=== PATIENT | male | born 1985 | race African-American/Black ===

== ENCOUNTER 2018-09-27 14:39 | Emergency (ER) | payer SELFPAY ==
[~2018-09-27] VITALS: Ht 188 cm; Wt 117.9 kg
[2018-09-27 14:48] VITALS: BP 137/80
--- NOTE | 2018-09-27 14:48 | NUR ---
ED Nurse Note: CAME TO ED DUE TO LOWER BACK PAIN X4DAYS. TOOK IBUPROFEN BUT PAIN REMAINS. DENIES ANY RECENT INJURY AND HEAVY LIFTING.
[2018-09-27] MEDS ORDERED: POTASSIUM CHLO10 ME2 PO (14:52)
[2018-09-27] MEDS ORDERED: Phenazopyridine 200mg tab ORAL ONE (15:45)
--- NOTE | 2018-09-27 15:49 | Emergency Room Report ---
History of Present Illness General Chief Complaint: Back Pain-No Injury Source: Patient Present Illness HPI 33 YO male presents to the ED c/o 10/29 in severity LBP x 3 days that has been progressive without appreciable trauma or fall. Pt. reports hx of UTi in the past which presented similarly with the same symptoms. pt. denies fevers, chills or abdominal tenderness. he reports "tightness sensation " in the bladder / lower abdomen. He denies nausea, vomiting, constipation or diarrhea. He denies dysuria, hematuria, penile d/c, suspicion of STI/hx of STI, joint pain or swollen tender lymph nodes. Pt. denies midline spinal pain. He denies hx of cancer or recent spinal procedure. Denies numbness tingling or loss of sensation or gross motor movements of the extremities, incontinence of bowel or bladder. Denies CP, Palpitations, LOC, AMS, dizziness, Changes in Vision, weakness or a sudden severe headache. Allergies: Coded Allergies: No Known Allergies (Verified , 09/27/18) Patient History Past Medical History: see triage record Past Surgical History: none Pertinent Family History: none Reviewed Nursing Documentation: PMH: Agreed; PSxH: Agreed Nursing Documentation-PMH Past Medical History: No Stated History Review of Systems All Other Systems: negative except mentioned in HPI Physical Exam Vital Signs Date Time Temp Pulse Resp B/P (MAP) Pulse Ox O2 Delivery O2 Flow Rate FiO2 09/27/18 14:48 98.8 83 16 137/80 (99) 97 Room Air Sp02 EP Interpretation: reviewed, normal General Appearance: no apparent distress, alert, GCS 15, non-toxic Head: normocephalic, atraumatic Eyes: bilateral eye normal inspection, bilateral eye PERRL ENT: hearing grossly normal, normal voice Neck: full range of motion Respiratory: lungs clear, normal breath sounds, speaking full sentences Cardiovascular #1: regular rate, rhythm Gastrointestinal: normal bowel sounds, non tender, soft, non-distended, no guarding Rectal: deferred Genitourinary: normal inspection, no CVA tenderness Musculoskeletal: back normal, gait/station normal, normal range of motion, tender - TTP bilateral lumbar paraspinal muscles, no midline ttp, no step-off or obvious deformity. Pt. ambulatory. FROM - with pain exacerbated at almost full flexion of the L-Spine. Neurologic: alert, oriented x3, responsive, motor strength/tone normal, sensory intact, normal gait, speech normal, other - NVI to distal Lower extremities., grossly normal Psychiatric: judgement/insight normal Lymphatic: no adenopathy Medical Decision Making PA Attestation Dr. Dill Is my supervising Physician whom patient management has been discussed with. Diagnostic Impression: Primary Impression: Back pain Qualified Codes: M54.5 - Low back pain ER Course 33 YO male presents to the ED c/o 10/29 in severity LBP x 3 days that has been progressive without appreciable trauma or fall. Pt. reports hx of UTi in the past which presented similarly with the same symptoms. pt. denies fevers, chills or abdominal tenderness. he reports "tightness sensation " in the bladder / lower abdomen. He denies nausea, vomiting, constipation or diarrhea. He denies dysuria, hematuria, penile d/c, suspicion of STI/hx of STI, joint pain or swollen tender lymph nodes. Pt. denies midline spinal pain. He denies hx of cancer or recent spinal procedure. Denies numbness tingling or loss of sensation or gross motor movements of the extremities, incontinence of bowel or bladder. Denies CP, Palpitations, LOC, AMS, dizziness, Changes in Vision, weakness or a sudden severe headache. Denies sciatica. Ddx considered but are not limited to UTi , Pyelo, STI, Stone, Cystitis, Muscle strain/spasm, sciatica, epidural abscess, cancer,or cauda equina just to name a few. Vital signs: are WNL, pt. is afebrile H&PE are most consistent with UTI ORDERS: - UA labs are attached- No evidence of infection. ED INTERVENTIONS: -Pyridium PO -Robaxin 750mg PO -I do not identify an emergent condition at this time. With current presentation , pt. is stable for close outpatient follow up and conservative treatment. D/ w pt. to return promptly to ED with worsening or new symptoms.- Pt. verbalizes' understanding and agreement with proposed treatment plan. DISCHARGE: At this time pt. is stable for d/c to home. Will provide printed patient care instructions, and any necessary prescriptions. Care plan and follow up instructions have been discussed with the patient prior to discharge. Labs Test 09/27/18 15:43 Urine Color Yellow Urine Appearance Clear Urine pH 6 (4.5-8.0) Urine Specific [place] 1.020 (1.005-1.035) Urine Protein Negative (NEGATIVE) Urine Glucose (UA) Negative (NEGATIVE) Urine Ketones Negative (NEGATIVE) Urine Blood Negative (NEGATIVE) Urine Nitrite Negative (NEGATIVE) Urine Bilirubin Negative (NEGATIVE) Urine Urobilinogen Normal MG/DL (0.0-1.0) Urine Leukocyte Esterase Negative (NEGATIVE) Last Vital Signs Date Time Temp Pulse Resp B/P (MAP) Pulse Ox O2 Delivery O2 Flow Rate FiO2 09/27/18 14:48 98.8 85 16 137/80 97 Room Air Disposition: HOME, SELF-CARE Condition: Stable Scripts Ibuprofen* (MOTRIN*) 600 Mg Tablet 600 MG ORAL THREE TIMES A DAY, #30 TAB 0 Refills Prov: Ivette Payne 09/27/18 Methocarbamol* (ROBAXIN-750*) 750 Mg Tablet 750 MG PO QID for 7 Days, #28 TAB 0 Refills Prov: Ivette Payne 09/27/18 Patient Instructions: Back Pain, Adult Additional Instructions: Take medications as directed. Follow up with a Primary Care Provider in 3-5 days, even if your symptoms have resolved. --Please review list of primary care clinics, if you do not already have a primary care provider Return sooner to ED if new symptoms occur, or current symptoms become worse. - Please note that this Emergency Department Report was dictated using [employer] librarian technology software, occasionally this can lead to erroneous entry secondary to interpretation by the dictation equipment. Ivette Payne Sep 27, 2018 15:49
--- NOTE | 2018-09-27 15:49 | NUR ---
ED Nurse Note: fabienne moser
[2018-09-27 15:58] LABS: APPEARANCE,URINE CLEAR; BILIRUBIN, URINE NEGATIVE (NEGATIVE); GLUCOSE, URINE (UA) NEGATIVE (NEGATIVE); KETONES,URINE NEGATIVE (NEGATIVE); LEUKOCYTE ESTERASE ,URINE NEGATIVE (NEGATIVE); NITRITE,URINE NEGATIVE (NEGATIVE); PH,URINE 6 (4.5-8.0); PROTEIN,URINE NEGATIVE (NEGATIVE); UROBILINOGEN,URINE NORMAL MG/DL (0.0-1.0)
[2018-09-27 16:00] LABS: COLOR,URINE YELLOW
[2018-09-27] MEDS ORDERED: ROBAXIN-750750 MG PO (16:06)
[2018-09-27] MEDS ORDERED: IBUPROFEN600 MG ORAL (16:15)
[2018-09-27] MEDS ORDERED: Methocarbamol 750mg tab ORAL ONE (16:30)
[2018-09-27 16:40] VITALS: BP 135/80
--- NOTE | 2018-09-27 16:41 | NUR ---
ER DISCHARGE NOTE: Patient is cleared to be discharged per ERMD, pt is aox4, on room air, with stable vital signs. pt was given dc and prescription instructions, pt was able to verbalize understanding, pt id band removed without complications. pt is able to ambulate with steady gait. pt took all belongings.
== END 2018-09-27 16:40 | disposition home or self-care (01) ==
LOC: EMR 16:08
DX: M54.5 Low back pain (principal)
CPT/HCPCS: 81003; 99283

== ENCOUNTER 2018-10-02 00:36 | Emergency (ER) | payer SELFPAY ==
[~2018-10-02] VITALS: Ht 188 cm; Wt 112.9 kg
[~2018-10-02 00:36] MED LIST: IBUPROFEN600 MG ORAL; POTASSIUM CHLO10 ME2 PO; ROBAXIN-750750 MG PO
[2018-10-02] MEDS ORDERED: Ketorolac 60mg Inj IM ONE (01:15)
--- NOTE | 2018-10-02 01:22 | Emergency Room Report ---
History of Present Illness General Chief Complaint: Lower Back Pain or Injury Source: Patient Present Illness HPI Is a 33-year-old male presents after increased low back pain. Patient reports having gradual onset of pain over the past 1 week. Reports having acute injury after sitting up. He states that he is been having persistent pain. This is worse with movement. Patient denies any fever. He denies any dysuria or hematuria. He denies any fever. Allergies: Coded Allergies: No Known Allergies (Verified , 09/27/18) Patient History Past Medical History: see triage record Reviewed Nursing Documentation: PMH: Agreed; PSxH: Agreed Review of Systems All Other Systems: negative except mentioned in HPI Physical Exam Vital Signs Date Time Temp Pulse Resp B/P (MAP) Pulse Ox O2 Delivery O2 Flow Rate FiO2 10/02/18 00:42 98.4 88 18 131/81 (98) 97 Room Air Sp02 EP Interpretation: reviewed, normal General Appearance: normal inspection, well appearing, no apparent distress, alert, GCS 15 Head: atraumatic ENT: normal ENT inspection, hearing grossly normal, normal voice Neck: normal inspection, full range of motion, supple, no bony tend Respiratory: normal inspection, lungs clear, normal breath sounds, no respiratory distress, no retraction, no wheezing Cardiovascular #1: regular rate, rhythm, no edema Gastrointestinal: normal inspection, normal bowel sounds, non tender, soft, no guarding, no hernia Genitourinary: no CVA tenderness Musculoskeletal: normal inspection, back normal, normal range of motion Neurologic: normal inspection, alert, oriented x3, responsive, utilities and maintenance supervisor III-XII nml as tested, speech normal Psychiatric: normal inspection, judgement/insight normal, mood/affect normal Medical Decision Making Diagnostic Impression: Primary Impression: Lumbar disc disease ER Course .Patient presented for low back pain. Differential diagnosis included but was not limited to herniated disc, cauda equina syndrome, abdominal aortic aneurysm , perforated ulcer, spinal epidural abscess, spinal stenosis, lumbar fracture, metastatic lesion, pyelonephritis. CT imaging was ordered to patient's history of testicular discomfort and concern for possible stone.CT imaging of the abdomen pelvis read by radiology showed no evidence of acute stone or acute abdominal pathology. There is no evidence of acute spinal fracture. Patient was noted to be ambulatory without assistance. He appears to be stable for discharge. Patient was advised to recheck with his primary care physician. He was given a prescription for gabapentin. He is advised to return if worse. Labs Test 10/02/18 01:30 Urine Color Pale yellow Urine Appearance Clear Urine pH 5 (4.5-8.0) Urine Specific [employer] 1.020 (1.005-1.035) Urine Protein Negative (NEGATIVE) Urine Glucose (UA) Negative (NEGATIVE) Urine Ketones Negative (NEGATIVE) Urine Blood Negative (NEGATIVE) Urine Nitrite Negative (NEGATIVE) Urine Bilirubin Negative (NEGATIVE) Urine Urobilinogen Normal MG/DL (0.0-1.0) Urine Leukocyte Esterase Negative (NEGATIVE) Last Vital Signs Date Time Temp Pulse Resp B/P (MAP) Pulse Ox O2 Delivery O2 Flow Rate FiO2 10/02/18 00:42 98.4 88 18 131/81 (98) 97 Room Air Status: improved Disposition: HOME, SELF-CARE Condition: Stable Scripts Gabapentin* (GABAPENTIN*) 300 Mg Capsule 300 MG ORAL THREE TIMES A DAY, #14 CAP 0 Refills Prov: Braden Meyer MD 10/02/18 Referrals: NOT CHOSEN IPA/,REFERRING (PCP) Braden Meyer MD Oct 02, 2018 01:22
[2018-10-02 01:43] LABS: APPEARANCE,URINE CLEAR; BILIRUBIN, URINE NEGATIVE (NEGATIVE); COLOR,URINE PALE YELLOW; GLUCOSE, URINE (UA) NEGATIVE (NEGATIVE); KETONES,URINE NEGATIVE (NEGATIVE); LEUKOCYTE ESTERASE ,URINE NEGATIVE (NEGATIVE); NITRITE,URINE NEGATIVE (NEGATIVE); PH,URINE 5 (4.5-8.0); PROTEIN,URINE NEGATIVE (NEGATIVE); UROBILINOGEN,URINE NORMAL MG/DL (0.0-1.0)
[2018-10-02] MEDS ORDERED: GABAPENTIN300 MG ORAL (02:16)
--- NOTE | 2018-10-02 02:27 | Diagnostic Imaging Report ---
Indication: Abdominal pain Technique: Continuous helical transaxial imaging of the abdomen and pelvis was obtained from the lung bases to the pubic symphysis. No intravenous contrast was administered. Coronal 2-D reformats were also obtained. Automatic Exposure Control was utilized. Total Dose length Product (DLP): 1018.[address] Dose Index Volume (CTDIvol): 17.49 mGy Comparison: none Findings: The lung bases are clear. There is no free fluid. Appendix is normal. Bowel gas pattern is nonobstructive. There is no nephrolithiasis or hydronephrosis identified. Gallbladder is contracted and not evaluated well. No obvious abnormality seen in this regard. IMPRESSION: Negative noncontrast CT. No acute findings. [facility] has communicated the preliminary results to the Emergency Department. Their findings are largely concordant with this report. The CT scanner at [facility] is accredited by the [employer] and the scans are performed using dose optimization techniques as appropriate to a performed exam including Automatic Exposure control.
[2018-10-02 02:35] VITALS: BP 124/72
[2018-10-02 02:45] VITALS: BP 124/72
== END 2018-10-02 02:49 | disposition home or self-care (01) ==
LOC: EMR 01:08
DX: M51.36 Other intervertebral disc degeneration, lumbar region (principal); M54.5 Low back pain
CPT/HCPCS: 74176; 81003; 96372; 99284

== ENCOUNTER 2018-10-18 16:44 | Emergency (ER) | payer SELFPAY ==
[~2018-10-18] VITALS: Ht 188 cm; Wt 117.9 kg
[~2018-10-18 16:44] MED LIST changes: +GABAPENTIN300 MG ORAL
[2018-10-18 16:48] VITALS: BP 116/68
[2018-10-18] MEDS ORDERED: NKM (16:49)
[2018-10-18 16:52] VITALS: BP 116/68
--- NOTE | 2018-10-18 17:06 | Emergency Room Report ---
History of Present Illness General Chief Complaint: Eye Problems Source: Patient Present Illness HPI 33-year-old male with no significant past medical history here complaining of pruritus and minimal pain in the right eye x1 day. Patient denies any fall or injury. Denies blurry vision, complains of minimal amount of yellow discharge from the eye. Denies being contact lenses. Denies photophobia, pain inside his eye. Denies URI symptoms, chest pain, shortness of breath, palpitation, and other associated symptoms. Mildly erythematous stye is noted in the right lower eyelid without conjunctivitis bacterially. Patient also complains of pruritus in the affected area and has not taken medication for symptom relief. Allergies: Coded Allergies: No Known Allergies (Verified , 09/27/18) Patient History Past Medical History: see triage record Past Surgical History: unable to obtain Pertinent Family History: none Immunizations: UTD Reviewed Nursing Documentation: PMH: Agreed; PSxH: Agreed Nursing Documentation-PMH Past Medical History: No Stated History Review of Systems All Other Systems: negative except mentioned in HPI Physical Exam Vital Signs Date Time Temp Pulse Resp B/P (MAP) Pulse Ox O2 Delivery O2 Flow Rate FiO2 10/18/18 16:48 98.4 71 18 116/68 (84) 97 Room Air Sp02 EP Interpretation: reviewed, normal General Appearance: no apparent distress, alert, GCS 15, non-toxic Head: normocephalic, atraumatic Eyes: right eye other - Sty in right lower eyelid; bilateral eye normal inspection, bilateral eye PERRL ENT: hearing grossly normal, normal pharynx, no angioedema, normal voice Neck: full range of motion, supple/symm/no masses Respiratory: chest non-tender, lungs clear, normal breath sounds, no rhonchi, speaking full sentences Cardiovascular #1: regular rate, rhythm, no edema, no murmur Gastrointestinal: normal bowel sounds, non tender, soft, non-distended, no guarding, no rebound Genitourinary: normal inspection, no CVA tenderness Musculoskeletal: back normal, gait/station normal, normal range of motion, non- tender Neurologic: alert, oriented x3, responsive, motor strength/tone normal, sensory intact, speech normal Psychiatric: judgement/insight normal, memory normal, mood/affect normal, no suicidal/homicidal ideation Skin: no rash Lymphatic: no adenopathy Medical Decision Making PA Attestation All diagnoses and treatment plans were reviewed and discussed with my supervising physician Dr. Stauffer Diagnostic Impression: Primary Impression: Hordeolum externum of right eye Additional Impression: Allergic conjunctivitis ER Course 33-year-old male with no significant past medical history here complaining of pruritus and minimal pain in the right eye x1 day. Patient denies any fall or injury. Denies blurry vision, complains of minimal amount of yellow discharge from the eye. Denies being contact lenses. Denies photophobia, pain inside his eye. Denies URI symptoms, chest pain, shortness of breath, palpitation, and other associated symptoms. Mildly erythematous stye is noted in the right lower eyelid without conjunctivitis bacterially. Patient also complains of pruritus in the affected area and has not taken medication for symptom relief. Ddx considered but are not limited to: bacterial conjunctivitis, allergic conjunctivitis, viral conjunctivitis, periorbital cellulitis, global trauma Vital signs: are WNL, pt. is afebrile H&PE are most consistent with: Hordeolum in the right lower eyelid, allergic conjunctivitis ORDERS: Ofloxacin ophthalmic, Zaditor ophthalmic ED INTERVENTIONS: None required at this time. DISCHARGE: At this time pt. is stable for d/c to home. Will provide printed patient care instructions, and any necessary prescriptions. Care plan and follow up instructions have been discussed with the patient prior to discharge. I advised the patient to follow-up with her primary care provider for her emergency room Last Vital Signs Date Time Temp Pulse Resp B/P (MAP) Pulse Ox O2 Delivery O2 Flow Rate FiO2 10/18/18 16:48 98.4 71 18 116/68 (84) 97 Room Air Disposition: HOME, SELF-CARE Condition: Stable Scripts Ketotifen Fumarate (ZADITOR) 5 Ml Drops 1 DROP LEFT EYE BID for 5 Days, #5 ML 0 Refills Prov: Ashley Castañeda 10/18/18 Ofloxacin (Ofloxacin) 5 Ml Drops 2 DROP OP Q4HR for 5 Days, #5 ML Prov: Ashley Castañeda 10/18/18 Patient Instructions: Allergic Conjunctivitis, [id number], Stye Additional Instructions: Take medication as directed follow-up with your primary care provider worsening symptoms return to the emergency room Ashley Castañeda Oct 18, 2018 17:06
[2018-10-18] MEDS ORDERED: OFLOXACIN10 ML OP (17:07)
[2018-10-18] MEDS ORDERED: ZADITOR5 ML LEFT EYE (17:07)
--- NOTE | 2018-10-18 17:20 | NUR ---
ED Nurse Note: PATIENT PRESENTS TO ER DUE TO RIGHT LOWER EYELID SWELLING/REDNESS X 2 DAYS; REPORTS NO FEVER, CHILLS. REPORTS NO BLURRY VISION. PATIENT USING CELL PHONE WITHOUT PROBLEM.
--- NOTE | 2018-10-18 17:27 | NUR ---
ED Nurse Note: PATIENT IS BEING DISCHARGED FROM MEDICAL CARE. D/C INSTRUCTION/PRESCRIPTIONS GIVEN TO PATIENT. PATIENT VEBALIZED UNDERSTANDING OF IT. ALL QUESTIONS WERE ANSWERED. PATIENT AMBULATED OUT WITH STEADY GAIT.
== END 2018-10-18 17:30 | disposition home or self-care (01) ==
LOC: EMR 17:02
DX: H00.012 Hordeolum externum right lower eyelid (principal); H10.11 Acute atopic conjunctivitis, right eye
CPT/HCPCS: 99282

== ENCOUNTER 2019-02-19 18:00 | Emergency (ER) | payer SELFPAY ==
[~2019-02-19] VITALS: Ht 185.4 cm; Wt 72.6 kg
[~2019-02-19 18:00] MED LIST changes: +NKM; +OFLOXACIN10 ML OP; +ZADITOR5 ML LEFT EYE
--- NOTE | 2019-02-19 18:15 | NUR ---
ED Nurse Note: Patient walked into ED from home c/o n/v/d and headache since today morning. patient is alert awake x4 ambulatory breathing unlabored and even, speaking in full sentences.
[2019-02-19] MEDS: Ketorolac 30mg Inj IV ONE ×3 (18:30→19:21)
[2019-02-19] MEDS ORDERED: Omnipaque-300 100ml vial INJ PRN (18:30)
[2019-02-19 19:03] LABS: BASOPHILS % (AUTO) 1.2 % (0.0-2.0); EOSINOPHILS % (AUTO) 0.4 % (0.0-3.0); HEMATOCRIT 46.3 % (42.0-52.0); HEMOGLOBIN 16.1 G/DL (14.2-18.0); LYMPHOCYTES % (AUTO) 8.2 % (20.0-45.0); MEAN CORPUSCULAR VOLUME 89 FL (80-99); MONOCYTES % (AUTO) 6.7 % (1.0-10.0); NEUTROPHILS % (AUTO) 83.4 % (45.0-75.0); PLATELET COUNT 220 K/UL (150-450); RED BLOOD COUNT 5.19 M/UL (4.70-6.10); RED CELL DISTRIBUTION WIDTH 9.7 % (11.6-14.8); WHITE BLOOD COUNT 10.5 K/UL (4.8-10.8)
--- NOTE | 2019-02-19 19:04 | NUR ---
ED Nurse Note: notified CHARIS Mcneill that patient refused toradol and asked for morphine instead.
[2019-02-19 19:07] LABS: INR 0.9 (0.9-1.1)
[2019-02-19 19:09] LABS: ANION GAP 14 mmol/L (5-15); BLOOD UREA NITROGEN 10 mg/dL (7-18); CALCIUM 9.7 MG/DL (8.5-10.1); CARBON DIOXIDE 23 MMOL/L (21-32); CHLORIDE 106 MMOL/L (98-107); POTASSIUM 3.2 MMOL/L (3.5-5.1); SODIUM 143 MMOL/L (136-145)
[2019-02-19 19:13] LABS: ALANINE AMINOTRANSFERASE 37 U/L (12-78); ALBUMIN 3.7 G/DL (3.4-5.0); ALBUMIN/GLOBULIN RATIO 0.7 (1.0-2.7); ALKALINE PHOSPHATASE 79 U/L (46-116); ASPARTATE AMINO TRANSFERASE 26 U/L (15-37)
[2019-02-19] MEDS ORDERED: Ketorolac 30mg Inj ONE (19:16)
--- NOTE | 2019-02-19 19:22 | NUR ---
ED Nurse Note: CHARIS Ramirez is ok for the patient not to be on the threat monitoring analyst while patient receives KCL IVF. will endorse to PM RN.
--- NOTE | 2019-02-19 19:29 | NUR ---
HAND-OFF: Report given to Rosalinda CHILD.
[2019-02-19 19:58] VITALS: BP 122/80
[2019-02-19] MEDS ORDERED: Ketorolac 30mg Inj IV ONE (20:15)
--- NOTE | 2019-02-19 20:19 | Diagnostic Imaging Report ---
Clinical Indication: Abdominal pain, history of hypokalemia renal disease Technique: No oral contrast utilized, per emergency room physician request IV administration nonionic contrast. Venous phase spiral acquisition obtained through the abdomen and pelvis. Multiplanar reconstructions were generated. Total dose length product 1567 mGycm. CTDIvol(s) 24 mGy. Dose reduction achieved using automated exposure control Comparison: 10/02/2018 noncontrast study Findings: The appendix is normal. A mild amount of fluid is seen in the rectum as well as within the small bowel. No neo small bowel distention. Distal esophagus, stomach, duodenum are unremarkable. No free or loculated intraperitoneal gas or fluid. The liver, gallbladder, bile ducts, pancreas, spleen, adrenals, kidneys are all unremarkable. No retroperitoneal or mesenteric mass or adenopathy. No pelvic mass or adenopathy. Included lung bases are clear. The bones are unremarkable. Impression: Fluid-filled small bowel and colon, may indicate diarrheal illness. No acute process otherwise This agrees with the preliminary interpretation provided overnight by [facility]. The CT scanner at [facility] is accredited by the [employer] and the scans are performed using protocols designed to limit radiation exposure to as low as reasonably achievable to attain images of sufficient resolution adequate for diagnostic evaluation.
--- NOTE | 2019-02-19 20:25 | Emergency Room Report ---
History of Present Illness General Chief Complaint: Abdominal Pain Source: Patient Present Illness HPI 34-year-old male who reports he has history of hypokalemia and takes supplements has not taken any supplement in a few days here presenting with multiple bouts of diarrhea and vomiting x2 days. Reports that started after eating a hotdog. Denies any alcohol consumption, drug use. Does admit to smoking marijuana. Denies any tobacco smoke. Denies fever and chills, chest pain, shortness of breath or palpitation at this time. Complains of generalized body ache and back pain and keeps asking for something stronger the back pain. Patient reports that his dentist gave him Percocet and he has been taking a few Percocets and has not been helping his pain. Keeps asking for morphine. Reports that he usually goes to the hospital when he has pain like this and asked for morphine. Denies urinary symptoms, recent travel, and other associated symptoms. Patient appears to be stable with stable vital signs. Denies any bloody emesis or bloody diarrhea. Complains of abdominal discomfort however denies any abdominal pain Allergies: Coded Allergies: No Known Allergies (Verified , 09/27/18) Patient History Past Medical History: see triage record Past Surgical History: none Pertinent Family History: none Social History: Reports: drug use - marijuana Immunizations: UTD Reviewed Nursing Documentation: PMH: Agreed; PSxH: Agreed Review of Systems All Other Systems: negative except mentioned in HPI Physical Exam Vital Signs Date Time Temp Pulse Resp B/P (MAP) Pulse Ox O2 Delivery O2 Flow Rate FiO2 02/19/19 18:07 98.4 83 20 126/76 (93) 100 Room Air Sp02 EP Interpretation: reviewed, normal General Appearance: alert, GCS 15, non-toxic, mild distress Head: normocephalic, atraumatic Eyes: bilateral eye normal inspection, bilateral eye PERRL ENT: hearing grossly normal, normal pharynx, no angioedema, normal voice Neck: full range of motion, supple, thyroid normal, no meningismus, no bony tend, supple/symm/no masses Respiratory: chest non-tender, lungs clear, normal breath sounds, no rhonchi, no respiratory distress, no wheezing, speaking full sentences Cardiovascular #1: regular rate, rhythm, no edema, no murmur, normal capillary refill Gastrointestinal: non tender, soft, no mass, no organomegaly, no peritonitis, no bruit, non-distended, no guarding Rectal: deferred Genitourinary: no CVA tenderness Musculoskeletal: back normal Neurologic: alert, motor strength/tone normal, oriented x3, sensory intact, responsive, speech normal Psychiatric: judgement/insight normal, memory normal, mood/affect normal, no suicidal/homicidal ideation Skin: no rash Lymphatic: no adenopathy Medical Decision Making PA Attestation Diagnosis and treatment plans were reviewed and discussed with my supervising physician Dr. Dill Diagnostic Impression: Primary Impression: Enteritis Additional Impressions: Dehydration Hypokalemia ER Course 34-year-old male who reports he has history of hypokalemia and takes supplements has not taken any supplement in a few days here presenting with multiple bouts of diarrhea and vomiting x2 days. Reports that started after eating a hotdog. Denies any alcohol consumption, drug use. Does admit to smoking marijuana. Denies any tobacco smoke. Denies fever and chills, chest pain, shortness of breath or palpitation at this time. Complains of generalized body ache and back pain and keeps asking for something stronger the back pain. Patient reports that his dentist gave him Percocet and he has been taking a few Percocets and has not been helping his pain. Keeps asking for morphine. Reports that he usually goes to the hospital when he has pain like this and asked for morphine. Denies urinary symptoms, recent travel, and other associated symptoms. Patient appears to be stable with stable vital signs. Denies any bloody emesis or bloody diarrhea. Complains of abdominal discomfort however denies any abdominal pain Ddx considered but are not limited to: appendicitis, cholecystis, gastritis, gastroenteritis, UTI, pyelonephritis, SBO, diverticulitis, influenza with GI manifestation, OR, Vital signs: are WNL, pt. is afebrile H&PE are most consistent with: Enteritis, dehydration, mild hypokalemia ORDERS: abdominal CT, abdominal pain set, EKG, dicyclomine, Zofran, Tylenol, potassium chloride ED INTERVENTIONS: Potassium chloride, NS bolus, Zofran, Pepcid, Toradol DISCHARGE: At this time pt. is stable for d/c to home. Will provide printed patient care instructions, and any necessary prescriptions. Care plan and follow up instructions have been discussed with the patient prior to discharge. 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 Explained to him that this is due to viral gastroenteritis and even if bacterial needs to follow-up with primary care provider for stool culture and ova and parasite. If worsening symptoms return to the emergency room. Increase oral hydration specially electrolyte water, keep a brat diet. EKG Diagnostic Results Rate: normal Rhythm: NSR ST Segments: no acute changes Other Impression No acute ST changes Chest X-Ray Diagnostic Results Chest X-Ray Diagnostic Results : Chest X-Ray Ordered: Yes # of Views/Limited/Complete: 1 View Indication: Other EP Interpretation: Yes PA Xray: Interpretation reviewed, by supervising MD, and agrees with findings. Interpretation: no consolidation, no pneumothorax Impression: No acute disease Electronically Signed by: Ashley Kirkpatrick PA-C CT/MRI/US Diagnostic Results CT/MRI/US Diagnostic Results : Imaging Test Ordered: CT abdomen pelvis with contrast Impression CT ABDOMEN & PELVIS With Contrast: Lower thorax is unremarkable. Decreased attenuation liver which may be phase of IV contrast versus hepatic steatosis. Gallbladder, spleen, pancreas and adrenal glands are unremarkable. Kidneys, ureters and urinary bladder unremarkable. Appendix measures upper limits normal 6 mm. No adjacent stranding to suggest acute appendicitis. Correlate clinically. There is fluid noted throughout the small bowel and colon with mild wall thickening of the proximal small bowel loops. Findings may represent nonspecific diarrheal illness/enteritis. No free fluid. No free air. No acute osseous abnormality. Vascular calcifications. Last Vital Signs Date Time Temp Pulse Resp B/P (MAP) Pulse Ox O2 Delivery O2 Flow Rate FiO2 02/19/19 19:59 98.4 02/19/19 19:58 80 18 122/80 100 Room Air Disposition: HOME, SELF-CARE Condition: Stable Scripts Potassium Chloride* (K-DUR*) 20 Meq Tab.er.prt 20 MEQ ORAL DAILY, #7 TAB 0 Refills Prov: Ashley Castañeda 02/19/19 Acetaminophen* (TYLENOL EXTRA STRENGTH*) 500 Mg Tablet 500 MG ORAL Q6H PRN for Mild Pain/Temp > 100.5, #30 TAB 0 Refills Prov: Ashley Castañeda 02/19/19 Dicyclomine Hcl* (DICYCLOMINE HCL*) 10 Mg Capsule 10 MG ORAL TID, #10 CAP Prov: Ashley Castañeda 02/19/19 Ondansetron (Zofran) 4 Mg Tablet 4 MG ORAL Q6H PRN for Nausea & Vomiting, #14 TAB Prov: Ashley Castañeda 02/19/19 Referrals: NOT CHOSEN IPA/MD,REFERRING (PCP) Patient Instructions: Abdominal Pain, Adult, Dehydration, Adult Additional Instructions: Take medication as directed, keep a brat diet consisting of banana, rice, applesauce, piece of toast, increase oral hydration specially electrolyte water. Avoid eating spicy, acidic food, avoid eating dairy products for few days. Follow-up with your primary care provider for referral to large sheetfed press operator. Your back pain is secondary to multiple bouts of vomiting and diarrhea. If worsening symptoms return to the emergency room. Ashley Castañeda Feb 19, 2019 20:25
[2019-02-19] MEDS ORDERED: POTASSIUM CHLO20 ME1 ORAL (20:28)
[2019-02-19] MEDS ORDERED: TYLENOL EXTRA500 MG ORAL (20:28)
[2019-02-19] MEDS ORDERED: DICYCLOMINE HCL10 MG ORAL (20:28)
[2019-02-19] MEDS ORDERED: ZOFRAN4 M1 ORAL (20:28)
[2019-02-19 20:39] VITALS: BP 122/80
--- NOTE | 2019-02-19 20:39 | NUR ---
ED Nurse Note: pt cleared to be d/c per ER provider, pt discharge and aftercare instruction w/ prescription provided to, education done via discussion and handout, pt advised to follow up with pcp or return to ed if changes in condition, pt verbalized understanding and agrees with plan, left w/ all belongings accompanied by girlfriend, iv d/c and id band removed.
--- NOTE | 2019-02-20 10:48 | Diagnostic Imaging Report ---
Indication: Shortness of breath Technique: One view of the chest Comparison: none Findings: Lungs and pleural spaces are clear. Heart size is normal. Impression: No acute process
== END 2019-02-19 20:40 | disposition home or self-care (01) ==
LOC: EMR 19:31
DX: K52.9 Noninfective gastroenteritis and colitis, unspecified (principal); E86.0 Dehydration; E87.6 Hypokalemia; F12.90 Cannabis use, unspecified, uncomplicated
CPT/HCPCS: 36415; 71045; 74177; 80053; 83690; 84484; 85025; 85610; 85730; 86850; 86900; 86901; 93005; 96361; 96365; 96375; 96376; 99284; G0480; J1885; J2405; J3480; J7030; Q9967; S0028; J8499

== ENCOUNTER 2019-07-10 12:28 | Emergency (ER) | payer SELFPAY ==
[~2019-07-10] VITALS: Ht 182.9 cm; Wt 104.3 kg
[2019-07-10 12:28] VITALS: BP 132/86
[~2019-07-10 12:28] MED LIST changes: +DICYCLOMINE HCL10 MG ORAL; +POTASSIUM CHLO20 ME1 ORAL; +TYLENOL EXTRA500 MG ORAL; +ZOFRAN4 M1 ORAL
[2019-07-10] MEDS ORDERED: ZITHROMAX250 MG ORAL (12:39)
[2019-07-10] MEDS ORDERED: IBUPROFEN600 M1 ORAL (12:39)
[2019-07-10 12:44] VITALS: BP 132/86
[2019-07-10] MEDS ORDERED: Lidocaine 2% Visc 15ml soln ORAL ONE (12:45)
--- NOTE | 2019-07-10 12:47 | Emergency Room Report ---
History of Present Illness General Chief Complaint: Fever Source: Patient Present Illness HPI Patient is a 34-year-old male denies any significant past medical history who presents to the ER complaining of throat pain, tonsil swelling and swollen lymph nodes for 2 days. Patient states he had a fever and took NyQuil before coming in. Patient denies any drooling, changes to his voice, rash or neck stiffness. Patient denies any difficulty swallowing or drooling. He denies any chest pain, shortness of breath or cough. 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 Patient History Past Medical History: none Past Surgical History: none Social History: Reports: drug use - marijuana; Denies: smoking, alcohol use Review of Systems All Other Systems: negative except mentioned in HPI Physical Exam Vital Signs Date Time Temp Pulse Resp B/P (MAP) Pulse Ox O2 Delivery O2 Flow Rate FiO2 07/10/19 12:22 99.0 97 20 132/86 (101) 100 Room Air Sp02 EP Interpretation: reviewed, normal General Appearance: no apparent distress, alert, GCS 15, non-toxic Head: normocephalic, atraumatic Eyes: bilateral eye normal inspection, bilateral eye PERRL ENT: no angioedema, tonsillar swelling, other - No peritonsillar abscess or cellulitis Neck: full range of motion, no meningismus, other - Tender cervical lymphadenopathy Respiratory: chest non-tender, lungs clear, normal breath sounds, speaking full sentences Cardiovascular #1: regular rate, rhythm, no edema Gastrointestinal: normal bowel sounds, non tender, soft, non-distended, no guarding, no rebound Rectal: deferred Musculoskeletal: back normal, normal range of motion, gait/station normal, non- tender Neurologic: alert, motor strength/tone normal, oriented x3, sensory intact, responsive, speech normal Psychiatric: no suicidal/homicidal ideation Skin: no rash Medical Decision Making Diagnostic Impression: Primary Impression: Pharyngitis ER Course Patient has no peritonsillar abscess or cellulitis. Presumed strep pharyngitis. Patient being discharged home with a Z-Harvey and Motrin. After discussing risks and benefits of further diagnostics, treatment plans, as well as indications for and risks of admission, the patient is agreeable to being discharged home. I have explained that their evaluation and treatment in the emergency department today is an important step towards them achieving better health but that their evaluation today is not intended to replace further evaluation and treatment by a physician in their local clinic. I have explained that while the current findings suggest no immediate life threatening emergency they will require further evaluation and treatment by a physician of their choice in their area. They understand that it will be necessary for them to review the final reports of their ED visit with their clinic physician. We have reviewed indications for return to the Emergency Department. I have explained that additional time may need to pass and/or additional testing as an outpatient may be necessary before a definitive diagnosis can be made. They tell me they are willing to follow up as instructed within the timeframe I recommend. They appear to understand what we discussed. Additionally they understand that if they are unable to be seen by an outpatient physician they are welcome, and in fact should, return to the Emergency Department for a repeat evaluation. The patient is stable at time of discharge. Last Vital Signs Date Time Temp Pulse Resp B/P (MAP) Pulse Ox O2 Delivery O2 Flow Rate FiO2 07/10/19 12:28 97 20 Room Air 07/10/19 12:28 98.9 132/86 100 Disposition: HOME, SELF-CARE Condition: Stable Scripts Ibuprofen* (MOTRIN*) 600 Mg Tablet 600 MG ORAL FOUR TIMES A DAY, #30 TAB 0 Refills Prov: Valerie Phan M.D. 07/10/19 Azithromycin* (ZITHROMAX*) 250 Mg Tablet 250 MG ORAL DAILY, #6 TAB 0 Refills Take two tables once daily for 1 day, then one tablet once daily for 4 days. Prov: Valerie Phan M.D. 07/10/19 Referrals: [facility] Patient Instructions: Pharyngitis, [id number] Additional Instructions: The patient was provided with discharge instructions, notified to follow-up with a primary care doctor and or specialist in the next 24-48 hours, and to return to the ED if they have worsening of their symptoms. Please note that this report is being documented using TrialScope technology. This can lead to erroneous entry secondary to incorrect interpretation by the dictating instrument. Valerie Phan M.D. July 10, 2019 12:47
== END 2019-07-10 13:00 | disposition home or self-care (01) ==
LOC: EMR 12:51
DX: J02.9 Acute pharyngitis, unspecified (principal); F12.90 Cannabis use, unspecified, uncomplicated
CPT/HCPCS: 99282

== ENCOUNTER 2019-07-12 01:10 | Inpatient (IN) | payer MEDICAID ==
[2019-07-12] VITALS (10 sets, daily range): BP systolic 133–161; BP diastolic 78–120
[~2019-07-12] VITALS: Ht 185.4 cm; Wt 109.8 kg
[~2019-07-12 01:10] MED LIST changes: +IBUPROFEN600 M1 ORAL; +ZITHROMAX250 MG ORAL
[2019-07-12] MEDS ORDERED: HYDROmorphone 1mg/ml Carpuject IVP ONE ×2 (01:45→02:45)
[2019-07-12] MEDS ORDERED: Omnipaque 350 100ml vial INJ PRN (01:45)
[2019-07-12] MEDS ORDERED: Dexamethasone 4mg/ml vial IVP ONE (01:45)
[2019-07-12] MEDS ORDERED: cefTRIAXone 1 GM in NS 55 ML IVPB ONE (01:45)
--- NOTE | 2019-07-12 01:46 | Emergency Room Report ---
History of Present Illness General Chief Complaint: Fever Source: Patient Present Illness HPI This is a 34-year-old male with no past medical history. Presents with chief plaint of sore throat and fever. Onset for last 3 days now. He was here yesterday for the same. He received azithromycin and Motrin. Said is not getting better but actually getting worse. Swelling is more to the left side of his neck. Pain is 10 out of 10. He has increasing fever and chills. No nausea or vomiting. Worse with swallowing. He still holding his secretion. Pain is diffuse in nature but mostly the little the throat and left neck area. Never had this problem before. No sick contact. 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 Patient History Past Medical History: see triage record, old chart reviewed Past Surgical History: none Pertinent Family History: none Social History: Denies: smoking Immunizations: other Reviewed Nursing Documentation: PMH: Agreed; PSxH: Agreed Nursing Documentation-PMH Past Medical History: No History, Except For Review of Systems Constitutional: Reports: chills, fever, weakness Eye: Denies: eye pain, blurred vision ENT: Reports: throat pain, throat swelling; Denies: ear pain, nose congestion Respiratory: Denies: cough, shortness of breath Cardiovascular: Denies: chest pain, palpitations Gastrointestinal: Denies: abdominal pain, diarrhea, nausea, vomiting Musculoskeletal: Denies: back pain, joint pain Skin: Denies: rash Neurological: Denies: headache, numbness Endocrine: Denies: increased thirst, increased urine Hematologic/Lymphatic: Denies: easy bruising All Other Systems: negative except mentioned in HPI Physical Exam Vital Signs Date Time Temp Pulse Resp B/P (MAP) Pulse Ox O2 Delivery O2 Flow Rate FiO2 07/12/19 01:14 102.4 105 18 150/98 (115) 98 Room Air Vitals with fever Sp02 EP Interpretation: reviewed, normal General Appearance: no apparent distress, alert, other - Ill-appearing Head: normocephalic, atraumatic Eyes: bilateral eye PERRL, bilateral eye EOMI ENT: hearing grossly normal, tonsillar swelling, pharyngeal erythema Neck: full range of motion, supple, no meningismus, tender - Left side neck is swollen and tender to palpation Respiratory: chest non-tender, lungs clear, normal breath sounds Cardiovascular #1: regular rate, rhythm, no murmur Gastrointestinal: normal bowel sounds, non tender, no mass, no organomegaly, no bruit, non-distended Musculoskeletal: back normal, normal range of motion, gait/station normal Psychiatric: mood/affect normal Medical Decision Making Diagnostic Impression: Primary Impression: Sepsis Qualified Codes: A41.9 - Sepsis, unspecified organism Additional Impressions: Pharyngitis, acute Qualified Codes: J02.9 - Acute pharyngitis, unspecified Lymphadenopathy of left cervical region ER Course Patient presents with fever and sore throat with significant neck swelling. There is no evidence of any abscess on the CT scan. Labs unremarkable with elevated monocyte count. This may be a viral etiology. Antibiotics given here. Because he failed outpatient therapy and is still not feeling better, will admit for IV fluids and pain control. I will admit to service of Dr. Larios. CT/MRI/US Diagnostic Results CT/MRI/US Diagnostic Results : Imaging Test Ordered: CT neck Impression Read by radiologist. No abscess seen. He has lymph no inflammation up to 2.8 cm. Last Vital Signs Date Time Temp Pulse Resp B/P (MAP) Pulse Ox O2 Delivery O2 Flow Rate FiO2 07/12/19 01:14 102.4 105 18 150/98 (115) 98 Room Air Status: improved Disposition: ADMITTED INPATIENT Condition: Serious Referrals: NOT CHOSEN IPA/,REFERRING (PCP) Avery Zavala MD July 12, 2019 01:46
[2019-07-12 02:15] LABS: BASOPHILS % (AUTO) 1.7 % (0.0-2.0); HEMOGLOBIN 15.1 G/DL (14.2-18.0); LYMPHOCYTES % (AUTO) 6.4 % (20.0-45.0); MEAN CORPUSCULAR VOLUME 84 FL (80-99); MONOCYTES % (AUTO) 13.8 % (1.0-10.0); PLATELET COUNT 170 K/UL (150-450); RED CELL DISTRIBUTION WIDTH 10.3 % (11.6-14.8); WHITE BLOOD COUNT 9.5 K/UL (4.8-10.8)
[2019-07-12 02:37] LABS: ALANINE AMINOTRANSFERASE 41 U/L (12-78); ALBUMIN 3.3 G/DL (3.4-5.0); ALBUMIN/GLOBULIN RATIO 0.7 (1.0-2.7); ALKALINE PHOSPHATASE 77 U/L (46-116); ASPARTATE AMINO TRANSFERASE 38 U/L (15-37); BILIRUBIN,TOTAL 0.7 MG/DL (0.2-1.0); BLOOD UREA NITROGEN 4 mg/dL (7-18); CALCIUM 9.2 MG/DL (8.5-10.1); CARBON DIOXIDE 27 MMOL/L (21-32); CREATININE 1.1 MG/DL (0.55-1.30)
[2019-07-12 02:45] LABS: CHLORIDE 100 MMOL/L (98-107); POTASSIUM 2.8 MMOL/L (3.5-5.1); SODIUM 137 MMOL/L (136-145)
[2019-07-12] MEDS ORDERED: Acetaminophen 500mg (ES) tab ORAL ONE (04:00)
--- NOTE | 2019-07-12 04:15 | Diagnostic Imaging Report ---
EXAM: CT Angiography Neck With Intravenous Contrast CLINICAL HISTORY: PAIN TECHNIQUE: Axial computed tomographic angiography images of the neck with intravenous contrast. CTDI is 8.2 mGy and DLP is 267.5 mGy-cm. One or more of the following dose reduction techniques were used: automated exposure control, adjustment of the mA and/or kV according to patient size, use of iterative reconstruction technique. MIP reconstructed images were created and reviewed. Coronal and sagittal reformatted images were created and reviewed. COMPARISON: No relevant prior studies available. FINDINGS: VASCULATURE: Right common carotid artery: Unremarkable. No significant stenosis. No dissection or occlusion. Right internal carotid artery: Unremarkable. Extracranial segment is patent with no significant stenosis. No dissection or occlusion. Right external carotid artery: Unremarkable. No occlusion. Right vertebral artery: Unremarkable. No significant stenosis. No dissection or occlusion. Left common carotid artery: Unremarkable. No significant stenosis. No dissection or occlusion. Left internal carotid artery: Unremarkable. Extracranial segment is patent with no significant stenosis. No dissection or occlusion. Left external carotid artery: Unremarkable. No occlusion. Left vertebral artery: Unremarkable. No significant stenosis. No dissection or occlusion. NECK: Bones/joints: No acute fracture. No dislocation. Soft tissues: Unremarkable as visualized. No mass. Lymph nodes: Heterogeneous left level II and level III lymph nodes measuring up to 2.8 cm, question infection, lymphoproliferative disorder or malignancy. Right sided level II lymph nodes measuring up to 2 cm. Smaller but still suspicious left level IV lymph nodes are seen. CAROTID STENOSIS REFERENCE USING NASCET CRITERIA: % ICA stenosis = (1 - narrowest ICA diameter/diameter of distal cervical ICA) x 100. Mild - <50% stenosis. Moderate - 50-69% stenosis. Severe - 70-94% stenosis. Near occlusion - 95-99% stenosis. Occluded - 100% stenosis. IMPRESSION: Heterogeneous left level II and level III lymph nodes measuring up to 2. 8 cm, question infection, lymphoproliferative disorder or malignancy. Right sided level II lymph nodes measuring up to 2 cm. Smaller but still suspicious left level IV lymph nodes are seen. No significant extracranial arterial abnormality.
[2019-07-12] MEDS ORDERED: Morphine Sulfate 4mg/ml Inj (IV USE ONLY) IVP PRN (04:45)
[2019-07-12] MEDS ORDERED: POTASSIUM CHLO10 MEQ ORAL (06:25)
[2019-07-12] MEDS ORDERED: Morphine Sulfate 2mg/ml Inj(IV/IM USE ONLY) IVP PRN (09:30)
[2019-07-12] MEDS ORDERED: Docusate 100mg cap ORAL PRN (09:30)
[2019-07-12] MEDS: Enoxaparin 40mg Inj SUBQ SCH ×2 (09:47→10:02)
--- NOTE | 2019-07-12 09:48 | History & Physical ---
History of Present Illness General Date patient seen: July 12, 2019 Reason for Hospitalization: Fever Present Illness HPI This is a 34 yo M w/ no PMH, otherwise healthy in life, who presents w/ a CC of sore throat, fever, and pain for the last three days. Patient was on an outpatient course of Azithromycin and Motrin, but feels symptoms are worsening, and also endorses swelling to the left side of his neck. CT neck reveals lymphadenopathy irregular in appearance, and patient also is not septic appearing w/ no signs of elevated WBC so do feel Heme/Onc needs to be consulted. Patient denies recent weight loss, or health issues. He does state the fevers feel intense; he actually lives in [place] and is here visiting. Patient denies sick contacts; COVID was sent from the ER. Allergies: Coded Allergies: No Known Allergies (Verified , 09/27/18) COVID-19 Screening Contact w/high risk pt: No Recent Travel to affected area: No Experienced COVID-19 symptoms?: Yes COVID-19 symptoms experienced: Fever (T>100.4F or >38C) Medication History Scheduled Azithromycin* (Zithromax*), 250 MG ORAL DAILY Dicyclomine Hcl* (Dicyclomine Hcl*), 10 MG ORAL TID Gabapentin* (Gabapentin*), 300 MG ORAL THREE TIMES A DAY Ibuprofen (Motrin), 600 MG ORAL THREE TIMES A DAY Ibuprofen* (Motrin*), 600 MG ORAL FOUR TIMES A DAY Ketotifen Fumarate (Zaditor), 1 DROP LEFT EYE BID Methocarbamol* (Robaxin-750*), 750 MG PO QID No Known Medications* (NKM - No Known Medications*), 0 ., (Reported) Ofloxacin (Ofloxacin), 2 DROP OP Q4HR Potassium Chloride* (K-Dur*), 20 MEQ ORAL DAILY Potassium Chloride* (K-Dur*), 4 MEQ ORAL DAILY, (Reported) Scheduled PRN Acetaminophen* (Tylenol Extra Strength*), 500 MG ORAL Q6H PRN for Mild Pain/ Temp > 100.5 Ondansetron (Zofran), 4 MG ORAL Q6H PRN for Nausea & Vomiting Miscellaneous Medications Potassium Chloride (Potassium Chloride), 10 MEQ PO, (Reported) Patient History Healthcare decision maker Resuscitation status Advanced Directive on File Review of Systems Review of Symptoms General ROS: no weight loss or fever Psychological ROS: no depression or mood changes, no memory loss Ophthalmic ROS: no visual changes or eye irritation ENT ROS: Sore throat, neck swelling Allergy and Immunology ROS: no allergic symptoms or urticaria Hematological and Lymphatic ROS: + Swollen Lymph Nodes Endocrine ROS: no polyuria, polydipsia, weight changes, temperature intolerance Respiratory ROS: no cough, shortness of breath, or wheezing Cardiovascular ROS: no chest pain or dyspnea on exertion Gastrointestinal ROS: denies abdominal pain, bright red blood in stool. Musculoskeletal ROS: no myalgias or arthralgias Neurological ROS: no TIA or stroke symptoms Dermatological ROS: no new or changing skin lesions, rashes or pruritis Physical Exam Physical Exam General appearance: alert, cooperative, no distress, appears stated age Head: Normocephalic, without obvious abnormality, atraumatic Eyes: conjunctivae/corneas clear. PERRL, EOM's intact. Fundi benign Throat: Lips, mucosa, and tongue normal. Teeth and gums normal Neck: BL cervical Adenopathy Lungs: clear to auscultation bilaterally Heart: regular rate and rhythm, S1, S2 normal, no murmur, click, rub or gallop Abdomen: soft, non-tender. Bowel sounds normal. No masses, no organomegaly Extremities: extremities normal, atraumatic, no cyanosis or edema Pulses: 2+ and symmetric Skin: Skin color, texture, turgor normal. No rashes or lesions Neurologic: Grossly normal Last 24 Hour Vital Signs Date Time Temp Pulse Resp B/P (MAP) Pulse Ox O2 Delivery O2 Flow Rate FiO2 07/12/19 08:24 98.6 85 20 139/80 (99) 99 07/12/19 07:18 99.7 85 18 133/79 (97) 98 07/12/19 06:50 99.5 107 18 133/78 98 Room Air 98 07/12/19 06:25 99.5 107 18 133/78 98 Room Air 98 07/12/19 05:32 101.5 07/12/19 04:20 101.5 105 18 144/79 98 Room Air 98 07/12/19 04:20 101.5 07/12/19 03:50 103.3 102 18 142/88 98 Room Air 98 07/12/19 03:20 103.3 07/12/19 02:38 102.3 07/12/19 01:15 105 18 Room Air 98 07/12/19 01:15 102.4 105 18 150/98 98 Room Air 07/12/19 01:14 102.4 105 18 150/98 (115) 98 Room Air Intake and Output 07/11/19 07/12/19 19:00 07:00 Intake Total 2000 ml Balance 2000 ml Intake IV Total 2000 ml Laboratory Tests Test 07/12/19 01:50 07/12/19 02:51 White Blood Count 9.5 K/UL (4.8-10.8) Red Blood Count 5.10 M/UL (4.70-6.10) Hemoglobin 15.1 G/DL (14.2-18.0) Hematocrit 43.0 % (42.0-52.0) Mean Corpuscular Volume 84 FL (80-99) Mean Corpuscular Hemoglobin 29.7 PG (27.0-31.0) Mean Corpuscular Hemoglobin Concent 35.2 G/DL (32.0-36.0) Red Cell Distribution Width 10.3 % (11.6-14.8) L Platelet Count 170 K/UL (150-450) Mean Platelet Volume 6.1 FL (6.5-10.1) L Neutrophils (%) (Auto) 75.0 % (45.0-75.0) Lymphocytes (%) (Auto) 6.4 % (20.0-45.0) L Monocytes (%) (Auto) 13.8 % (1.0-10.0) H Eosinophils (%) (Auto) 3.0 % (0.0-3.0) Basophils (%) (Auto) 1.7 % (0.0-2.0) Sodium Level 137 MMOL/L (136-145) Potassium Level 2.8 MMOL/L (3.5-5.1) L Chloride Level 100 MMOL/L (98-107) Carbon Dioxide Level 27 MMOL/L (21-32) Blood Urea Nitrogen 4 mg/dL (7-18) L Creatinine 1.1 MG/DL (0.55-1.30) Estimat Glomerular Filtration Rate > 60 mL/min (>60) Glucose Level 103 MG/DL (74-106) Lactic Acid Level 2.10 mmol/L (0.4-2.0) H 1.20 mmol/L (0.66-2.22) Calcium Level 9.2 MG/DL (8.5-10.1) Total Bilirubin 0.7 MG/DL (0.2-1.0) Aspartate Amino Transf (AST/SGOT) 38 U/L (15-37) H Alanine Aminotransferase (ALT/SGPT) 41 U/L (12-78) Alkaline Phosphatase 77 U/L (46-116) Total Protein 8.3 G/DL (6.4-8.2) H Albumin 3.3 G/DL (3.4-5.0) L Globulin 5.0 g/dL Albumin/Globulin Ratio 0.7 (1.0-2.7) L Height (Feet): 6 Height (Inches): 2.00 Weight (Pounds): 200 Medications Current Medications Medications (Trade) Dose Ordered Sig/Mable Route PRN Reason Start Time Stop Time Status Last Admin Dose Admin Acetaminophen (Tylenol) 650 mg Q6H PRN ORAL For Headache 07/12/19 09:30 08/11/19 09:29 Acetaminophen/ Hydrocodone Bitart ([place] 10/325) 1 tab Q4H PRN ORAL For Pain 07/12/19 09:30 07/19/19 09:29 UNV Ceftriaxone Sodium 1 gm/ Dextrose 55 ml @ 110 mls/hr Q24H IVPB 07/13/19 01:00 07/20/19 00:59 Docusate Sodium (Colace) 100 mg TID PRN ORAL Constipation 07/12/19 09:30 08/11/19 09:29 Enoxaparin Sodium (Lovenox) 40 mg DAILY SUBQ 07/12/19 09:30 10/10/19 09:29 Iohexol (Omnipaque 350 100ml) 100 ml NOW PRN INJ Radiology Procedure 07/12/19 01:45 07/14/19 01:38 Morphine Sulfate (Morphine Sulfate) 2 mg Q4H PRN IVP For Pain 07/12/19 09:30 07/19/19 09:29 Potassium Chloride (K-Dur) 40 meq ONCE ORAL 07/12/19 09:30 07/12/19 10:30 Assessment/Plan Assessment/Plan: Assessment #Lymphadenopathy; suspicious in nature w/ heterogenous appearance, no active signs of sepsis #R/O COVID #Hypokalemia--> per patient this is a chronic issue, ? renal etiology #HTN--> BP currently elevated but denies hx Plan Consult to Heme/Onc Rocephin IV, Nava Cx Replete K Supportive measures, Pain control Norvasc *1; monitor BP, add on as needed but for now pain control w/ morphine and norco DVT ppx Diet as tolerated MIPS Hospital declaration INPATIENT level of care is warranted for this patient because patient is a 89 year old with who presents with suspicion of . I have a high level of concern because . Patient is at high risk for . Plan of care/treatment include . Patient care is expected to be greater than 2 midnights. OBSERVATION level of care is warranted for this patient. Patient is a 89 year old with who presents with . Patient will be admitted for 1 midnight, but if additional night(s) is/are necessary, patient will be converted to inpatient status for the entire hospitalization Disposition: Once the patient is stable to leave the hospital, I anticipate the patient will likely be discharged to the following environment: Estimated discharge date: I spent 70 minutes on this patient's case, and minutes was dedicated to counseling and/or care coordination. MIPS ([employer]it-based Incentive Payment System) Applicable CPT: 01073, 52444 CHECK ALL THAT ARE MET: Measure #5 (CHF): All ages. Prescribe AUDREY/ARB upon discharge for patients with left ventricular systolic dysfunction. If not, the reason is clearly documented in the medical chart. Measure #8 (CHF): All ages. Prescribe a beta khurram upon discharge for patients with left ventricular systolic dysfunction. If not, the reason is clearly documented in the medical chart. Measure #47 Advance care plan or surrogate decision maker documented in the medical record. Measure #130 The provider has documented, updated, or reviewed the patients current medication list and has documented it in the patients note. Measure #374 (All): Send report to referring provider. Measure #407(Sepsis due to MSSA bacteremia): Age 18+ Patient treated with a beta-lactam antibiotic (Nafcillin, Oxacillin or Cefazolin) as definitive therapy. MEDICAL COMPLEXITY High complexity medical decision making (need 2/3 categories) Problem - need 4 points Acute/new problem with new plan for workup (4 points, 1 max) Acute/new problem without additional workup (3 points, 1 max) Unstable chronic problem actively being managed (2 point each, 2 max) Stable chronic problem actively being managed (1 point each, 2 max) Self-limited/transient process (constipation, muscle ache, etc) (1 point each , 2 max) Data - need 4 points Reviewed labs/imaging studies (1 points, 2 max) Independent review of imaging (EKG, xrays, etc) (2 points, 2 max) Discussed case with consult/other MD/RN (2 points, 2 max) High Risk - qualify if have one of the following: Severe exacerbation of acute problem, acute mental status change, IV narcotics , monitoring drug levels (vancomycin, INR, tacrolimus etc) Toyin Felipe D.O. July 12, 2019 09:48
[2019-07-12 11:08] LABS: CREATINE KINASE 242 U/L (26-308); FERRITIN 125 NG/ML (8-388); LACTATE DEHYDROGENASE 233 U/L (81-234)
[2019-07-12] MEDS: Morphine Sulfate 2mg/ml Inj(IV/IM USE ONLY) IVP PRN ×2 (15:15→20:30)
[2019-07-12] MEDS ORDERED: HYDROcodone/Acetamin 10/325 tab ORAL PRN (16:45)
[2019-07-12] MEDS: HYDROcodone/Acetamin 10/325 tab ORAL PRN ×2 (16:57→21:12)
[2019-07-13] VITALS: BP 128/90
[2019-07-13] MEDS ORDERED: cefTRIAXone 1 GM in D5W 55 ML IVPB SCH (01:00)
[2019-07-13] MEDS: HYDROcodone/Acetamin 10/325 tab ORAL PRN ×2 (01:41→13:44)
[2019-07-13 04:00] VITALS: BP 131/80
[2019-07-13] MEDS: Morphine Sulfate 2mg/ml Inj(IV/IM USE ONLY) IVP PRN ×2 (04:16→09:37)
[2019-07-13 07:12] LABS: BASOPHILS % (AUTO) 1.2 % (0.0-2.0); EOSINOPHILS % (AUTO) 2.6 % (0.0-3.0); HEMATOCRIT 39.6 % (42.0-52.0); HEMOGLOBIN 14.1 G/DL (14.2-18.0); LYMPHOCYTES % (AUTO) 11.4 % (20.0-45.0); MEAN CORPUSCULAR VOLUME 85 FL (80-99); MONOCYTES % (AUTO) 10.2 % (1.0-10.0); NEUTROPHILS % (AUTO) 74.6 % (45.0-75.0); PLATELET COUNT 163 K/UL (150-450); RED BLOOD COUNT 4.67 M/UL (4.70-6.10); RED CELL DISTRIBUTION WIDTH 10.5 % (11.6-14.8)
[2019-07-13 07:19] LABS: ALANINE AMINOTRANSFERASE 45 U/L (12-78); ALBUMIN 3.1 G/DL (3.4-5.0); ALBUMIN/GLOBULIN RATIO 0.6 (1.0-2.7); ALKALINE PHOSPHATASE 70 U/L (46-116); ANION GAP 8 mmol/L (5-15); ASPARTATE AMINO TRANSFERASE 30 U/L (15-37); BILIRUBIN,TOTAL 0.9 MG/DL (0.2-1.0); BLOOD UREA NITROGEN 4 mg/dL (7-18); CALCIUM 8.7 MG/DL (8.5-10.1); CARBON DIOXIDE 29 MMOL/L (21-32); CHLORIDE 99 MMOL/L (98-107); PHOSPHORUS 2.9 MG/DL (2.5-4.9); POTASSIUM 3.4 MMOL/L (3.5-5.1); SODIUM 136 MMOL/L (136-145)
[2019-07-13 08:00] VITALS: BP 125/75
[2019-07-13] MEDS: Enoxaparin 40mg Inj SUBQ SCH (09:37)
[2019-07-13] MEDS ORDERED: HYDROmorphone 1mg/ml Carpuject IVP SCH (10:45)
[2019-07-13 12:00] VITALS: BP 131/87
--- NOTE | 2019-07-13 12:55 | Internal Med Progress Note ---
Subjective Date of Service: July 13, 2019 Physician Name Toyin Felipe Attending Physician Tonie Larios MD Current Medications Medications (Trade) Dose Ordered Sig/Mable Route PRN Reason Start Time Stop Time Status Last Admin Dose Admin Acetaminophen (Tylenol) 650 mg Q6H PRN ORAL For Headache 07/12/19 09:30 08/11/19 09:29 07/13/19 00:36 Acetaminophen/ Hydrocodone Bitart ([place] 10/325) 1 tab Q4H PRN ORAL For Moderate Pain 07/12/19 10:48 07/19/19 10:47 07/13/19 01:41 Ceftriaxone Sodium 1 gm/ Dextrose 55 ml @ 110 mls/hr Q24H IVPB 07/13/19 01:00 07/20/19 00:59 07/13/19 00:29 Docusate Sodium (Colace) 100 mg TID PRN ORAL Constipation 07/12/19 09:30 08/11/19 09:29 Enoxaparin Sodium (Lovenox) 40 mg DAILY SUBQ 07/12/19 09:30 10/10/19 09:29 Iohexol (Omnipaque 350 100ml) 100 ml NOW PRN INJ Radiology Procedure 07/12/19 01:45 07/14/19 01:38 Morphine Sulfate (Morphine Sulfate) 2 mg Q4H PRN IVP For Severe Pain 07/12/19 14:00 07/19/19 13:59 07/13/19 09:37 Allergies: Coded Allergies: No Known Allergies (Verified , 09/27/18) HEENT: Denies: no symptoms, eye pain, blurred vision, tearing, double vision, ear pain, ear discharge, nose pain, nose congestion, throat pain, throat swelling, mouth pain, mouth swelling, other Subjective Patient is having a lot of throat/neck pain and fevers; do feel lymphoma needs to be ruled out, appreciate oncology. F/U with biopsy, expand AB coverage, and add Dilaudid IV. Objective Last Vital Signs Date Time Temp Pulse Resp B/P (MAP) Pulse Ox O2 Delivery O2 Flow Rate FiO2 07/13/19 12:00 98.7 89 18 131/87 (102) 98 07/13/19 09:00 Room Air 07/12/19 06:50 98 Laboratory Tests Test 07/13/19 06:30 White Blood Count 13.0 K/UL (4.8-10.8) H Red Blood Count 4.67 M/UL (4.70-6.10) L Hemoglobin 14.1 G/DL (14.2-18.0) L Hematocrit 39.6 % (42.0-52.0) L Mean Corpuscular Volume 85 FL (80-99) Mean Corpuscular Hemoglobin 30.1 PG (27.0-31.0) Mean Corpuscular Hemoglobin Concent 35.5 G/DL (32.0-36.0) Red Cell Distribution Width 10.5 % (11.6-14.8) L Platelet Count 163 K/UL (150-450) Mean Platelet Volume 5.6 FL (6.5-10.1) L Neutrophils (%) (Auto) 74.6 % (45.0-75.0) Lymphocytes (%) (Auto) 11.4 % (20.0-45.0) L Monocytes (%) (Auto) 10.2 % (1.0-10.0) H Eosinophils (%) (Auto) 2.6 % (0.0-3.0) Basophils (%) (Auto) 1.2 % (0.0-2.0) Sodium Level 136 MMOL/L (136-145) Potassium Level 3.4 MMOL/L (3.5-5.1) L Chloride Level 99 MMOL/L (98-107) Carbon Dioxide Level 29 MMOL/L (21-32) Anion Gap 8 mmol/L (5-15) Blood Urea Nitrogen 4 mg/dL (7-18) L Creatinine 1.0 MG/DL (0.55-1.30) Estimat Glomerular Filtration Rate > 60 mL/min (>60) Glucose Level 125 MG/DL (74-106) H Calcium Level 8.7 MG/DL (8.5-10.1) Phosphorus Level 2.9 MG/DL (2.5-4.9) Magnesium Level 1.4 MG/DL (1.8-2.4) L Total Bilirubin 0.9 MG/DL (0.2-1.0) Aspartate Amino Transf (AST/SGOT) 30 U/L (15-37) Alanine Aminotransferase (ALT/SGPT) 45 U/L (12-78) Alkaline Phosphatase 70 U/L (46-116) Total Protein 8.1 G/DL (6.4-8.2) Albumin 3.1 G/DL (3.4-5.0) L Globulin 5.0 g/dL Albumin/Globulin Ratio 0.6 (1.0-2.7) L Microbiology Date/Time Source Procedure Growth Status 07/12/19 01:50 Blood Blood Culture - Preliminary NO GROWTH AFTER 24 HOURS Resulted 07/12/19 01:35 Blood Blood Culture - Preliminary NO GROWTH AFTER 24 HOURS Resulted Intake and Output 07/12/19 07/13/19 19:00 07:00 Intake Total 400 ml 55 ml Balance 400 ml 55 ml Intake Oral 400 ml IV Total 55 ml # Voids 3 2 Assessment/Plan Assessment/Plan Assessment #Lymphadenopathy; suspicious in nature w/ heterogenous appearance, DDx Infection vs CA, pending Biopsy #R/O COVID #Hypokalemia--> per patient this is a chronic issue, ? renal etiology #HTN--> BP currently elevated but denies hx Plan Consult to Heme/Onc Expand AB to Vancomycin and Zosyn Replete K Supportive measures, Pain control w/ Dilaudid given severe pain Norvasc *1; monitor BP, add on as needed but for now pain control w/ morphine and norco DVT ppx Diet as tolerated 07/12: Expand AB coverage, await biopsy, Dilaudid for pain Toyin Felipe D.O. July 13, 2019 12:55
[2019-07-13] MEDS ORDERED: Morphine Sulfate 2mg/ml Inj(IV/IM USE ONLY) IVP PRN (13:15)
[2019-07-13] MEDS: Piperacillin/Tazobactam 3.375 GM in NS 110 ML IVPB SCH ×2 (13:43→21:42)
[2019-07-13 16:00] VITALS: BP 128/79
[2019-07-13] MEDS ORDERED: Vancomycin 1.5gm/NS Premix IVPB ONE (16:00)
[2019-07-13 20:00] VITALS: BP 150/91
[2019-07-14] VITALS: BP 118/70
[2019-07-14] MEDS: Vancomycin 1gm/D5W 275ml IVPB SCH ×4 (01:01→03:13)
[2019-07-14 04:00] VITALS: BP 123/77
[2019-07-14] MEDS: Piperacillin/Tazobactam 3.375 GM in NS 110 ML IVPB SCH ×3 (06:10→22:48)
[2019-07-14 08:00] VITALS: BP 129/79
[2019-07-14] MEDS: Enoxaparin 40mg Inj SUBQ SCH (09:00)
[2019-07-14] MEDS ORDERED: Solu-MEDROL 125mg Inj IVP SCH (09:15)
--- NOTE | 2019-07-14 10:05 | Consultation ---
History of Present Illness General Chief Complaint: Fever Present Illness Allergies: Coded Allergies: No Known Allergies (Verified , 09/27/18) Medication History Scheduled Azithromycin* (Zithromax*), 250 MG ORAL DAILY Dicyclomine Hcl* (Dicyclomine Hcl*), 10 MG ORAL TID Gabapentin* (Gabapentin*), 300 MG ORAL THREE TIMES A DAY Ibuprofen (Motrin), 600 MG ORAL THREE TIMES A DAY Ibuprofen* (Motrin*), 600 MG ORAL FOUR TIMES A DAY Ketotifen Fumarate (Zaditor), 1 DROP LEFT EYE BID Methocarbamol* (Robaxin-750*), 750 MG PO QID No Known Medications* (NKM - No Known Medications*), 0 ., (Reported) Ofloxacin (Ofloxacin), 2 DROP OP Q4HR Potassium Chloride* (K-Dur*), 20 MEQ ORAL DAILY Potassium Chloride* (K-Dur*), 4 MEQ ORAL DAILY, (Reported) Scheduled PRN Acetaminophen* (Tylenol Extra Strength*), 500 MG ORAL Q6H PRN for Mild Pain/ Temp > 100.5 Ondansetron (Zofran), 4 MG ORAL Q6H PRN for Nausea & Vomiting Miscellaneous Medications Potassium Chloride (Potassium Chloride), 10 MEQ PO, (Reported) Patient History Healthcare decision maker Resuscitation status Advanced Directive on File Physical Exam Last 24 Hour Vital Signs Date Time Temp Pulse Resp B/P (MAP) Pulse Ox O2 Delivery O2 Flow Rate FiO2 07/14/19 08:00 102.7 120 22 129/79 (96) 90 07/14/19 04:00 99.1 102 20 123/77 (92) 96 07/14/19 00:00 98.8 100 20 118/70 (86) 98 07/13/19 21:27 100.7 07/13/19 21:00 Room Air 07/13/19 20:00 101.7 105 20 150/91 (110) 96 07/13/19 16:38 98.7 07/13/19 16:00 98.0 81 17 128/79 (95) 98 07/13/19 14:14 98.7 07/13/19 12:00 98.7 89 18 131/87 (102) 98 07/13/19 11:46 99.2 07/13/19 10:07 99.2 Intake and Output 07/13/19 07/14/19 19:00 07:00 Intake Total 985.0 ml 1585.000 ml Balance 985.0 ml 1585.000 ml Intake Oral 1200 ml IV Total 385.0 ml 385.000 ml Other 600 ml # Voids 3 # Bowel Movements 1 Laboratory Tests Test 07/14/19 09:12 Arterial Blood pH 7.490 (7.350-7.450) Arterial Blood Partial Pressure CO2 32.9 mmHg (35.0-45.0) L Arterial Blood Partial Pressure O2 50.8 mmHg (75.0-100.0) L Arterial Blood HCO3 24.5 mmol/L (22.0-26.0) Arterial Blood Oxygen Saturation 87.1 % (95-100) *L Arterial Blood Base Excess 1.8 (-2-2) [place] Test Positive Height (Feet): 6 Height (Inches): 1.00 Weight (Pounds): 200 Medications Current Medications Medications (Trade) Dose Ordered Sig/Mable Route PRN Reason Start Time Stop Time Status Last Admin Dose Admin Acetaminophen (Tylenol) 650 mg Q6H PRN ORAL For Headache 07/12/19 09:30 08/11/19 09:29 07/14/19 08:23 Acetaminophen/ Hydrocodone Bitart ([place] 10/325) 1 tab Q4H PRN ORAL For Moderate Pain 07/12/19 10:48 07/19/19 10:47 07/13/19 13:44 Docusate Sodium (Colace) 100 mg TID PRN ORAL Constipation 07/12/19 09:30 08/11/19 09:29 Enoxaparin Sodium (Lovenox) 40 mg DAILY SUBQ 07/12/19 09:30 10/10/19 09:29 Hydromorphone HCl (Dilaudid) 2 mg Q4H PRN IVP Severe Pain (Pain Scale 7-10) 07/13/19 13:00 07/20/19 12:59 07/14/19 08:23 Methylprednisolone Sodium Succinate (Solu-MEDROL) 40 mg ONCE IVP 07/14/19 09:15 07/14/19 10:30 Morphine Sulfate (Morphine Sulfate) 2 mg Q4H PRN IVP Moderate Pain (Pain Scale 4-6) 07/13/19 13:15 07/20/19 13:14 Piperacillin Sod/ Tazobactam Sod 3.375 gm/Sodium Chloride 110 ml @ 27.5 mls/hr EVERY 8 HOURS IVPB 07/13/19 14:00 07/18/19 13:59 07/14/19 06:10 Vancomycin HCl (Vanco rx to dose) 1 ea DAILY PRN MISC Per rx protocol 07/13/19 13:00 08/12/19 12:59 Vancomycin HCl 1 gm/Dextrose 275 ml @ 183.708 mls/hr Q8H IVPB 07/14/19 00:00 07/19/19 00:00 07/14/19 01:01 Assessment/Plan Assessment/Plan: Hematology Consultation Note REQ MD Larios and Dr. Felipe RFC: Lymphadenopathy around neck DOS 07/14/2019 HPI This is a 34 yo M w/ no PMH, otherwise healthy in life, who presents w/ a CC of sore throat, fever, and pain for the last three days. Patient was on an outpatient course of Azithromycin and Motrin, but feels symptoms are worsening, and also endorses swelling to the left side of his neck. CT neck reveals lymphadenopathy irregular in appearance, and patient also is not septic appearing w/ no signs of elevated WBC so do feel Heme/Onc needs to be consulted. Per patient, noted that he has less swelling now than on admission Patient denies recent weight loss, or health issues. He does state the fevers feel intense; he actually lives in [place] and is here visiting. Patient denies sick contacts; COVID was sent from the ER. Coded Allergies: No Known Allergies (Verified , 09/27/18) COVID-19 Screening Contact w/high risk pt: No Recent Travel to affected area: No Experienced COVID-19 symptoms?: Yes COVID-19 symptoms experienced: Fever (T>100.4F or >38C) Medication History Scheduled Azithromycin* (Zithromax*), 250 MG ORAL DAILY Dicyclomine Hcl* (Dicyclomine Hcl*), 10 MG ORAL TID Gabapentin* (Gabapentin*), 300 MG ORAL THREE TIMES A DAY Ibuprofen (Motrin), 600 MG ORAL THREE TIMES A DAY Ibuprofen* (Motrin*), 600 MG ORAL FOUR TIMES A DAY Ketotifen Fumarate (Zaditor), 1 DROP LEFT EYE BID Methocarbamol* (Robaxin-750*), 750 MG PO QID No Known Medications* (NKM - No Known Medications*), 0 ., (Reported) Ofloxacin (Ofloxacin), 2 DROP OP Q4HR Potassium Chloride* (K-Dur*), 20 MEQ ORAL DAILY Potassium Chloride* (K-Dur*), 4 MEQ ORAL DAILY, (Reported) Scheduled PRN Acetaminophen* (Tylenol Extra Strength*), 500 MG ORAL Q6H PRN for Mild Pain/ Temp > 100.5 Ondansetron (Zofran), 4 MG ORAL Q6H PRN for Nausea & Vomiting Miscellaneous Medications Potassium Chloride (Potassium Chloride), 10 MEQ PO, (Reported) Patient History Healthcare decision maker Review of Systems Review of Symptoms General ROS: no weight loss or fever Psychological ROS: no depression or mood changes, no memory loss Ophthalmic ROS: no visual changes or eye irritation ENT ROS: Sore throat, neck swelling Allergy and Immunology ROS: no allergic symptoms or urticaria Hematological and Lymphatic ROS: + Swollen Lymph Nodes Endocrine ROS: no polyuria, polydipsia, weight changes, temperature intolerance Respiratory ROS: no cough, shortness of breath, or wheezing Cardiovascular ROS: no chest pain or dyspnea on exertion Gastrointestinal ROS: denies abdominal pain, bright red blood in stool. Musculoskeletal ROS: no myalgias or arthralgias Neurological ROS: no TIA or stroke symptoms Dermatological ROS: no new or changing skin lesions, rashes or pruritis Physical Exam: Vitals: reviewed General: NAD HEENT: nc, at Neck: supple ++ lymphadenopathy around Level II and III bilaterally Chest: clear breath sounds bilaterally Cardiovascular: RRR, no s3, s4 Abdomen: soft, nontender, nd Extremities: no cce, normal range of motion Neuro: alert and oriented IMPRESSION: CT neck Heterogeneous left level II and level III lymph nodes measuring up to 2. 8 cm, question infection, lymphoproliferative disorder or malignancy. Right sided level II lymph nodes measuring up to 2 cm. Smaller but still suspicious left level IV lymph nodes are seen. No significant extracranial arterial abnormality. Assessment and Recs # Neck lymphadenopathy that is bilateraly, up to 3cm, appears to be bilateral thus lower risk -- may be inffectious, autoimmune, viral, bacterial, iatrogenic --> have recommended that since his symptoms have improved to hold off two weeks before repeat scan --> he does not want to have a biopsy done at this time, I dw him to get repeat ct in two weeks --> no systemic symptoms otherwise, no weight loss, young age, lower risk for malignancy --> if doesn't want to get a us guided biopsy, then repeat ct in two weeks # Leukocytosis likely due to above case --> wbc 9-->13 --> may be related to viral/bacterial cause # Anemia of chronic disease --> hgb mildly lower, may be due to fluids # Elevated ddimer --> likely inflammatory as cause # Hypokalemia --> replete with k po The timing of this note does not necessarily reflect the time of the patient was seen. Greatly appreciate consultation. Kyler Johnson MD July 14, 2019 10:05
[2019-07-14] MEDS: Vancomycin 1 GM in D5W 275 ML IVPB SCH ×2 (10:19→18:05)
--- NOTE | 2019-07-14 10:47 | Diagnostic Imaging Report ---
EXAM: XR Soft Tissue Neck CLINICAL HISTORY: PAIN TECHNIQUE: Frontal and lateral views of the soft tissues of the neck. COMPARISON: Neck CTA of 07/12/19. FINDINGS: Airway: No abnormal narrowing. Bones/joints: Mild degenerative changes of the cervical spine with straightening. Soft tissues: No abnormal soft tissue prominence. Normal epiglottis. IMPRESSION: Mild degenerative changes of the cervical spine with straightening.
[2019-07-14 12:00] VITALS: BP 128/80
--- NOTE | 2019-07-14 13:26 | Infectious Diseases Prog Note ---
Assessment/Plan Assessment/Plan Full consult dictated: A) 1) pharyngitis, cervical adenopathy, pain, fevers, ?bacterial, ? viral syndrome , ? covid-19 infection 2) pmh - htn 3) allergies - nkda P) 1) vancomycin and zosyn 2) check serology, cultures, covid-19 testing 3) thank you Subjective Allergies: Coded Allergies: No Known Allergies (Verified , 09/27/18) Objective Vital Signs Last 24 Hour Vital Signs Date Time Temp Pulse Resp B/P (MAP) Pulse Ox O2 Delivery O2 Flow Rate FiO2 07/14/19 12:00 99.5 117 19 128/80 (96) 93 07/14/19 09:00 Nasal Cannula 4.0 07/14/19 08:53 97.3 07/14/19 08:00 102.7 120 22 129/79 (96) 90 07/14/19 04:00 99.1 102 20 123/77 (92) 96 07/14/19 00:00 98.8 100 20 118/70 (86) 98 07/13/19 21:00 Room Air 07/13/19 20:00 101.7 105 20 150/91 (110) 96 07/13/19 16:38 98.7 07/13/19 16:00 98.0 81 17 128/79 (95) 98 07/13/19 14:14 98.7 Height (Feet): 6 Height (Inches): 1.00 Weight (Pounds): 200 Microbiology Date/Time Source Procedure Growth Status 07/12/19 01:50 Blood Blood Culture - Preliminary NO GROWTH AFTER 48 HOURS Resulted 07/12/19 01:35 Blood Blood Culture - Preliminary NO GROWTH AFTER 48 HOURS Resulted Laboratory Tests Test 07/14/19 09:12 Arterial Blood pH 7.490 (7.350-7.450) Arterial Blood Partial Pressure CO2 32.9 mmHg (35.0-45.0) L Arterial Blood Partial Pressure O2 50.8 mmHg (75.0-100.0) L Arterial Blood HCO3 24.5 mmol/L (22.0-26.0) Arterial Blood Oxygen Saturation 87.1 % (95-100) *L Arterial Blood Base Excess 1.8 (-2-2) Aden Test Positive Current Medications Medications (Trade) Dose Ordered Sig/Mable Route PRN Reason Start Time Stop Time Status Last Admin Dose Admin Acetaminophen (Tylenol) 650 mg Q6H PRN ORAL For Headache 07/12/19 09:30 08/11/19 09:29 07/14/19 08:23 Acetaminophen/ Hydrocodone Bitart ([place] 10/325) 1 tab Q4H PRN ORAL For Moderate Pain 07/12/19 10:48 07/19/19 10:47 07/13/19 13:44 Docusate Sodium (Colace) 100 mg TID PRN ORAL Constipation 07/12/19 09:30 08/11/19 09:29 Enoxaparin Sodium (Lovenox) 40 mg DAILY SUBQ 07/12/19 09:30 10/10/19 09:29 Hydromorphone HCl (Dilaudid) 2 mg Q4H PRN IVP Severe Pain (Pain Scale 7-10) 07/13/19 13:00 07/20/19 12:59 07/14/19 08:23 Morphine Sulfate (Morphine Sulfate) 2 mg Q4H PRN IVP Moderate Pain (Pain Scale 4-6) 07/13/19 13:15 07/20/19 13:14 Piperacillin Sod/ Tazobactam Sod 3.375 gm/Sodium Chloride 110 ml @ 27.5 mls/hr EVERY 8 HOURS IVPB 07/13/19 14:00 07/18/19 13:59 07/14/19 06:10 Vancomycin HCl (Vanco rx to dose) 1 ea DAILY PRN MISC Per rx protocol 07/13/19 13:00 08/12/19 12:59 Vancomycin HCl 1 gm/Dextrose 275 ml @ 183.708 mls/hr Q8H IVPB 07/14/19 10:00 07/19/19 00:00 07/14/19 10:19 Vijay Cohen MD July 14, 2019 13:26
[2019-07-14 13:38] LABS: HEMATOCRIT 41.6 % (42.0-52.0); HEMOGLOBIN 14.6 G/DL (14.2-18.0); MEAN CORPUSCULAR VOLUME 85 FL (80-99); PLATELET COUNT 201 K/UL (150-450); RED BLOOD COUNT 4.91 M/UL (4.70-6.10); RED CELL DISTRIBUTION WIDTH 10.5 % (11.6-14.8); WHITE BLOOD COUNT 18.5 K/UL (4.8-10.8)
[2019-07-14 14:02] LABS: ALANINE AMINOTRANSFERASE 50 U/L (12-78); ALBUMIN 2.8 G/DL (3.4-5.0); ALBUMIN/GLOBULIN RATIO 0.5 (1.0-2.7); ALKALINE PHOSPHATASE 73 U/L (46-116); ANION GAP 12 mmol/L (5-15); ASPARTATE AMINO TRANSFERASE 35 U/L (15-37); BILIRUBIN,DIRECT 1.1 MG/DL (0.0-0.3); BLOOD UREA NITROGEN 7 mg/dL (7-18); CALCIUM 8.6 MG/DL (8.5-10.1); CARBON DIOXIDE 26 MMOL/L (21-32); CHLORIDE 94 MMOL/L (98-107); CREATININE 1.1 MG/DL (0.55-1.30); POTASSIUM 3.3 MMOL/L (3.5-5.1); SODIUM 132 MMOL/L (136-145)
--- NOTE | 2019-07-14 14:40 | Internal Med Progress Note ---
Subjective Date of Service: July 14, 2019 Physician Name Toyin Felipe Attending Physician Tonie Larios MD Current Medications Medications (Trade) Dose Ordered Sig/Mable Route PRN Reason Start Time Stop Time Status Last Admin Dose Admin Acetaminophen (Tylenol) 650 mg Q6H PRN ORAL For Headache 07/12/19 09:30 08/11/19 09:29 07/14/19 08:23 Acetaminophen/ Hydrocodone Bitart ([place] 10/325) 1 tab Q4H PRN ORAL For Moderate Pain 07/12/19 10:48 07/19/19 10:47 07/13/19 13:44 Docusate Sodium (Colace) 100 mg TID PRN ORAL Constipation 07/12/19 09:30 08/11/19 09:29 Enoxaparin Sodium (Lovenox) 40 mg DAILY SUBQ 07/12/19 09:30 10/10/19 09:29 Hydromorphone HCl (Dilaudid) 2 mg Q4H PRN IVP Severe Pain (Pain Scale 7-10) 07/13/19 13:00 07/20/19 12:59 07/14/19 08:23 Morphine Sulfate (Morphine Sulfate) 2 mg Q4H PRN IVP Moderate Pain (Pain Scale 4-6) 07/13/19 13:15 07/20/19 13:14 Piperacillin Sod/ Tazobactam Sod 3.375 gm/Sodium Chloride 110 ml @ 27.5 mls/hr EVERY 8 HOURS IVPB 07/13/19 14:00 07/18/19 13:59 07/14/19 06:10 Vancomycin HCl (Vanco rx to dose) 1 ea DAILY PRN MISC Per rx protocol 07/13/19 13:00 08/12/19 12:59 Vancomycin HCl 1 gm/Dextrose 275 ml @ 183.708 mls/hr Q8H IVPB 07/14/19 10:00 07/19/19 00:00 07/14/19 10:19 Allergies: Coded Allergies: No Known Allergies (Verified , 09/27/18) Subjective Patient feels his symptoms are getting better since expanding AB coverage. Still scheduled for biopsy, however may not need if continues to respond to treatment. However, do feel he should have ID consult as well. Patient denies hx of immunocompromise, and denies IVDA. Objective Last Vital Signs Date Time Temp Pulse Resp B/P (MAP) Pulse Ox O2 Delivery O2 Flow Rate FiO2 07/14/19 12:00 99.5 117 19 128/80 (96) 93 07/14/19 09:00 Nasal Cannula 4.0 07/12/19 06:50 98 Laboratory Tests Test 07/14/19 09:12 07/14/19 13:30 Arterial Blood pH 7.490 (7.350-7.450) Arterial Blood Partial Pressure CO2 32.9 mmHg (35.0-45.0) L Arterial Blood Partial Pressure O2 50.8 mmHg (75.0-100.0) L Arterial Blood HCO3 24.5 mmol/L (22.0-26.0) Arterial Blood Oxygen Saturation 87.1 % (95-100) *L Arterial Blood Base Excess 1.8 (-2-2) Aden Test Positive White Blood Count 18.5 K/UL (4.8-10.8) H Red Blood Count 4.91 M/UL (4.70-6.10) Hemoglobin 14.6 G/DL (14.2-18.0) Hematocrit 41.6 % (42.0-52.0) L Mean Corpuscular Volume 85 FL (80-99) Mean Corpuscular Hemoglobin 29.7 PG (27.0-31.0) Mean Corpuscular Hemoglobin Concent 35.0 G/DL (32.0-36.0) Red Cell Distribution Width 10.5 % (11.6-14.8) L Platelet Count 201 K/UL (150-450) Mean Platelet Volume 6.0 FL (6.5-10.1) L Neutrophils (%) (Auto) % (45.0-75.0) Lymphocytes (%) (Auto) % (20.0-45.0) Monocytes (%) (Auto) % (1.0-10.0) Eosinophils (%) (Auto) % (0.0-3.0) Basophils (%) (Auto) % (0.0-2.0) Differential Total Cells Counted 100 Neutrophils % (Manual) 87 % (45-75) H Lymphocytes % (Manual) 10 % (20-45) L Monocytes % (Manual) 3 % (1-10) Eosinophils % (Manual) 0 % (0-3) Basophils % (Manual) 0 % (0-2) Band Neutrophils 0 % (0-8) Platelet Estimate Adequate Platelet Morphology Normal Red Blood Cell Morphology Normal Prothrombin Time Pending Prothromb Time International Ratio Pending Sodium Level 132 MMOL/L (136-145) L Potassium Level 3.3 MMOL/L (3.5-5.1) L Chloride Level 94 MMOL/L (98-107) L Carbon Dioxide Level 26 MMOL/L (21-32) Anion Gap 12 mmol/L (5-15) Blood Urea Nitrogen 7 mg/dL (7-18) Creatinine 1.1 MG/DL (0.55-1.30) Estimat Glomerular Filtration Rate > 60 mL/min (>60) Glucose Level 187 MG/DL (74-106) H Calcium Level 8.6 MG/DL (8.5-10.1) Total Bilirubin 2.0 MG/DL (0.2-1.0) H Direct Bilirubin 1.1 MG/DL (0.0-0.3) H Aspartate Amino Transf (AST/SGOT) 35 U/L (15-37) Alanine Aminotransferase (ALT/SGPT) 50 U/L (12-78) Alkaline Phosphatase 73 U/L (46-116) Total Protein 8.4 G/DL (6.4-8.2) H Albumin 2.8 G/DL (3.4-5.0) L Globulin 5.6 g/dL Albumin/Globulin Ratio 0.5 (1.0-2.7) L Microbiology Date/Time Source Procedure Growth Status 07/12/19 01:50 Blood Blood Culture - Preliminary NO GROWTH AFTER 48 HOURS Resulted 07/12/19 01:35 Blood Blood Culture - Preliminary NO GROWTH AFTER 48 HOURS Resulted Intake and Output 07/13/19 07/14/19 19:00 07:00 Intake Total 985.0 ml 1585.000 ml Balance 985.0 ml 1585.000 ml Intake Oral 1200 ml IV Total 385.0 ml 385.000 ml Other 600 ml # Voids 3 # Bowel Movements 1 Objective General Appearance: WD/WN, no apparent distress HEENT: Cervical BL adenopathy Cardiovascular: normal rate, regular rhythm Respiratory/Chest: lungs clear, normal breath sounds, no respiratory distress Abdomen: soft, other - mildly TTP Extremities: normal range of motion 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 renal etiology #HTN--> BP currently elevated but denies hx Plan Consult to Heme/Onc, Consult to ID Expand AB to Vancomycin and Zosyn Replete K Supportive measures, Pain control w/ Dilaudid given severe pain Norvasc *1; monitor BP, add on as needed but for now pain control w/ morphine and norco DVT ppx Diet as tolerated 07/12: Expand AB coverage, await biopsy, Dilaudid for pain 07/13: Xray neck noted; await ID consult . FU regarding biopsy Toyin Felipe D.O. July 14, 2019 14:40
[2019-07-14 16:00] VITALS: BP 139/83
[2019-07-14 20:00] VITALS: BP 126/83
[2019-07-15] VITALS: BP 113/73
[2019-07-15] MEDS: Vancomycin 1 GM in D5W 275 ML IVPB SCH (03:16)
[2019-07-15 04:00] VITALS: BP 125/62
[2019-07-15] MEDS: Piperacillin/Tazobactam 3.375 GM in NS 110 ML IVPB SCH ×3 (06:36→21:56)
[2019-07-15 06:51] LABS: HEMATOCRIT 40.7 % (42.0-52.0); HEMOGLOBIN 14.5 G/DL (14.2-18.0); MEAN CORPUSCULAR VOLUME 87 FL (80-99); PLATELET COUNT 223 K/UL (150-450); RED CELL DISTRIBUTION WIDTH 10.9 % (11.6-14.8); WHITE BLOOD COUNT 17.8 K/UL (4.8-10.8)
[2019-07-15] MEDS: HYDROcodone/Acetamin 10/325 tab ORAL PRN (06:59)
[2019-07-15 07:22] LABS: ALANINE AMINOTRANSFERASE 47 U/L (12-78); ALBUMIN 2.8 G/DL (3.4-5.0); ALBUMIN/GLOBULIN RATIO 0.5 (1.0-2.7); ALKALINE PHOSPHATASE 84 U/L (46-116); ANION GAP 13 mmol/L (5-15); ASPARTATE AMINO TRANSFERASE 34 U/L (15-37); BILIRUBIN,TOTAL 1.1 MG/DL (0.2-1.0); BLOOD UREA NITROGEN 11 mg/dL (7-18); CALCIUM 9.3 MG/DL (8.5-10.1); CARBON DIOXIDE 27 MMOL/L (21-32); CHLORIDE 98 MMOL/L (98-107); CREATININE 1.1 MG/DL (0.55-1.30); PHOSPHORUS 1.8 MG/DL (2.5-4.9); SODIUM 138 MMOL/L (136-145)
[2019-07-15 07:30] LABS: POTASSIUM 2.3 MMOL/L (3.5-5.1)
[2019-07-15 07:31] LABS: BILIRUBIN,DIRECT 0.5 MG/DL (0.0-0.3)
[2019-07-15 08:00] VITALS: BP 110/66
[2019-07-15] MEDS: Enoxaparin 40mg Inj SUBQ SCH (09:00)
[2019-07-15] MEDS: Vancomycin 1.5gm/NS Premix q24h IVPB SCH ×2 (10:00→17:23)
[2019-07-15] MEDS ORDERED: Sodium Chloride for KCL Premix X 4hrs IV SCH (10:00)
--- NOTE | 2019-07-15 10:49 | Hematology/Onc Progress Note ---
Assessment/Plan Assessment/Plan Assessment and Recs # Neck lymphadenopathy that is bilateraly, up to 3cm, appears to be bilateral thus lower risk -- may be inffectious, autoimmune, viral, bacterial, iatrogenic --> have recommended that since his symptoms have improved to hold off two weeks before repeat scan --> he does not want to have a biopsy done at this time, I dw him to get repeat ct in two weeks --> no systemic symptoms otherwise, no weight loss, young age, lower risk for malignancy --> if doesn't want to get a us guided biopsy, then repeat ct in two weeks # Leukocytosis likely due to above case --> wbc 9-->13-->18 --> may be related to viral/bacterial cause # Anemia of chronic disease --> hgb mildly lower, may be due to fluids # Elevated ddimer --> likely inflammatory as cause # Hypokalemia --> replete with k po The timing of this note does not necessarily reflect the time of the patient was seen. Greatly appreciate consultation. Subjective Constitutional: Denies: no symptoms, chills, fever, malaise, weakness, other HEENT: Denies: no symptoms, eye pain, blurred vision, tearing, double vision, ear pain, ear discharge, nose pain, nose congestion, throat pain, throat swelling, mouth pain, mouth swelling, other Cardiovascular: Denies: no symptoms, chest pain, edema, irregular heart rate, lightheadedness, palpitations, syncope, other Respiratory: Denies: no symptoms, cough, shortness of breath, SOB with excertion, SOB at rest, sputum, wheezing, other Gastrointestinal/Abdominal: Denies: no symptoms, abdomen distended, abdominal pain, black stools, tarry stools, blood in stool, constipated, diarrhea, difficulty swallowing, nausea, poor appetite, poor fluid intake, rectal bleeding , vomiting, other Genitourinary: Denies: no symptoms, burning, discharge, frequency, flank pain, hematuria, incontinence, pain, urgency, other Neurologic/Psychiatric: Denies: no symptoms, anxiety, depressed, emotional problems, headache, numbness, paresthesia, pre-existing deficit, seizure, tingling, tremors, weakness, other Endocrine: Denies: no symptoms, excessive sweating, flushing, intolerance to cold, intolerance to heat, increased hunger, increased thirst, increased urine, unexplained weight gain, unexplained weight loss, other Hematologic/Lymphatic: Denies: no symptoms, anemia, easy bleeding, easy bruising, adenopathy, other Allergies: Coded Allergies: No Known Allergies (Verified , 09/27/18) Subjective 07/14 tired wants to go home, no bleeding, meds reviewed says neck feels better Objective Objective Current Medications Medications (Trade) Dose Ordered Sig/Mable Route PRN Reason Start Time Stop Time Status Last Admin Dose Admin Acetaminophen (Tylenol) 650 mg Q6H PRN ORAL For Headache 07/12/19 09:30 08/11/19 09:29 07/14/19 08:23 Acetaminophen/ Hydrocodone Bitart ([place] 10/325) 1 tab Q4H PRN ORAL For Moderate Pain 07/12/19 10:48 07/19/19 10:47 07/15/19 06:59 Docusate Sodium (Colace) 100 mg TID PRN ORAL Constipation 07/12/19 09:30 08/11/19 09:29 Enoxaparin Sodium (Lovenox) 40 mg DAILY SUBQ 07/12/19 09:30 10/10/19 09:29 Hydromorphone HCl (Dilaudid) 2 mg Q4H PRN IVP Severe Pain (Pain Scale 7-10) 07/13/19 13:00 07/20/19 12:59 07/14/19 22:49 Morphine Sulfate (Morphine Sulfate) 2 mg Q4H PRN IVP Moderate Pain (Pain Scale 4-6) 07/13/19 13:15 07/20/19 13:14 Ondansetron HCl (Zofran) 4 mg Q6H PRN IVP Nausea & Vomiting 07/14/19 18:00 08/13/19 17:59 07/14/19 18:05 Piperacillin Sod/ Tazobactam Sod 3.375 gm/Sodium Chloride 110 ml @ 27.5 mls/hr EVERY 8 HOURS IVPB 07/13/19 14:00 07/18/19 13:59 07/15/19 06:36 Potassium Chloride 100 ml @ 100 mls/hr Q1HR IVPB 07/15/19 10:00 07/15/19 13:59 07/15/19 10:36 Potassium Chloride (K-Dur) 40 meq ONCE ORAL 07/15/19 09:30 07/15/19 11:00 07/15/19 10:35 Sodium Chloride 400 ml @ 100 mls/hr Q4H IV 07/15/19 10:00 07/15/19 13:59 Vancomycin HCl (Vanco rx to dose) 1 ea DAILY PRN MISC Per rx protocol 07/13/19 13:00 08/12/19 12:59 Vancomycin/Sodium Chloride 275 ml @ 137.5 mls/ hr Q8H IVPB 07/15/19 10:00 07/20/19 09:59 Last 24 Hour Vital Signs Date Time Temp Pulse Resp B/P (MAP) Pulse Ox O2 Delivery O2 Flow Rate FiO2 07/15/19 08:00 98.0 64 19 110/66 (81) 96 07/15/19 04:00 97.7 105 26 125/62 (83) 95 07/15/19 00:00 Room Air 07/15/19 00:00 97.9 107 26 113/73 (86) 94 07/14/19 20:00 97.7 111 26 126/83 (97) 96 07/14/19 16:00 98.3 69 17 139/83 (101) 93 07/14/19 12:00 99.5 117 19 128/80 (96) 93 07/14/19 09:00 Nasal Cannula 4.0 07/14/19 08:53 97.3 07/14/19 08:00 102.7 120 22 129/79 (96) 90 07/14/19 04:00 99.1 102 20 123/77 (92) 96 07/14/19 00:00 98.8 100 20 118/70 (86) 98 07/13/19 21:00 Room Air 07/13/19 20:00 101.7 105 20 150/91 (110) 96 07/13/19 16:38 98.7 07/13/19 16:00 98.0 81 17 128/79 (95) 98 07/13/19 14:14 98.7 07/13/19 12:00 98.7 89 18 131/87 (102) 98 07/13/19 11:46 99.2 Intake and Output 07/14/19 07/15/19 19:00 07:00 Intake Total 1600 ml 1100 ml Balance 1600 ml 1100 ml Intake Oral 1100 ml Other 1600 ml # Voids 3 # Bowel Movements 1 Labs Test 07/13/19 06:30 07/14/19 09:12 07/14/19 13:30 07/15/19 01:10 White Blood Count 13.0 K/UL (4.8-10.8) 18.5 K/UL (4.8-10.8) Red Blood Count 4.67 M/UL (4.70-6.10) 4.91 M/UL (4.70-6.10) Hemoglobin 14.1 G/DL (14.2-18.0) 14.6 G/DL (14.2-18.0) Hematocrit 39.6 % (42.0-52.0) 41.6 % (42.0-52.0) Mean Corpuscular Volume 85 FL (80-99) 85 FL (80-99) Mean Corpuscular Hemoglobin 30.1 PG (27.0-31.0) 29.7 PG (27.0-31.0) Mean Corpuscular Hemoglobin Concent 35.5 G/DL (32.0-36.0) 35.0 G/DL (32.0-36.0) Red Cell Distribution Width 10.5 % (11.6-14.8) 10.5 % (11.6-14.8) Platelet Count 163 K/UL (150-450) 201 K/UL (150-450) Mean Platelet Volume 5.6 FL (6.5-10.1) 6.0 FL (6.5-10.1) Neutrophils (%) (Auto) 74.6 % (45.0-75.0) % (45.0-75.0) Lymphocytes (%) (Auto) 11.4 % (20.0-45.0) % (20.0-45.0) Monocytes (%) (Auto) 10.2 % (1.0-10.0) % (1.0-10.0) Eosinophils (%) (Auto) 2.6 % (0.0-3.0) % (0.0-3.0) Basophils (%) (Auto) 1.2 % (0.0-2.0) % (0.0-2.0) Sodium Level 136 MMOL/L (136-145) 132 MMOL/L (136-145) Potassium Level 3.4 MMOL/L (3.5-5.1) 3.3 MMOL/L (3.5-5.1) Chloride Level 99 MMOL/L (98-107) 94 MMOL/L (98-107) Carbon Dioxide Level 29 MMOL/L (21-32) 26 MMOL/L (21-32) Anion Gap 8 mmol/L (5-15) 12 mmol/L (5-15) Blood Urea Nitrogen 4 mg/dL (7-18) 7 mg/dL (7-18) Creatinine 1.0 MG/DL (0.55-1.30) 1.1 MG/DL (0.55-1.30) Estimat Glomerular Filtration Rate > 60 mL/min (>60) > 60 mL/min (>60) Glucose Level 125 MG/DL (74-106) 187 MG/DL (74-106) Calcium Level 8.7 MG/DL (8.5-10.1) 8.6 MG/DL (8.5-10.1) Phosphorus Level 2.9 MG/DL (2.5-4.9) Magnesium Level 1.4 MG/DL (1.8-2.4) Total Bilirubin 0.9 MG/DL (0.2-1.0) 2.0 MG/DL (0.2-1.0) Aspartate Amino Transf (AST/SGOT) 30 U/L (15-37) 35 U/L (15-37) Alanine Aminotransferase (ALT/SGPT) 45 U/L (12-78) 50 U/L (12-78) Alkaline Phosphatase 70 U/L (46-116) 73 U/L (46-116) Total Protein 8.1 G/DL (6.4-8.2) 8.4 G/DL (6.4-8.2) Albumin 3.1 G/DL (3.4-5.0) 2.8 G/DL (3.4-5.0) Globulin 5.0 g/dL 5.6 g/dL Albumin/Globulin Ratio 0.6 (1.0-2.7) 0.5 (1.0-2.7) Arterial Blood pH 7.490 (7.350-7.450) Arterial Blood Partial Pressure CO2 32.9 mmHg (35.0-45.0) Arterial Blood Partial Pressure O2 50.8 mmHg (75.0-100.0) Arterial Blood HCO3 24.5 mmol/L (22.0-26.0) Arterial Blood Oxygen Saturation 87.1 % (95-100) Arterial Blood Base Excess 1.8 (-2-2) Aden Test Positive Differential Total Cells Counted 100 Neutrophils % (Manual) 87 % (45-75) Lymphocytes % (Manual) 10 % (20-45) Monocytes % (Manual) 3 % (1-10) Eosinophils % (Manual) 0 % (0-3) Basophils % (Manual) 0 % (0-2) Band Neutrophils 0 % (0-8) Platelet Estimate Adequate Platelet Morphology Normal Red Blood Cell Morphology Normal Direct Bilirubin 1.1 MG/DL (0.0-0.3) Vancomycin Level Trough 10.5 ug/mL (5.0-12.0) Test 07/15/19 04:00 White Blood Count 17.8 K/UL (4.8-10.8) Red Blood Count 4.70 M/UL (4.70-6.10) Hemoglobin 14.5 G/DL (14.2-18.0) Hematocrit 40.7 % (42.0-52.0) Mean Corpuscular Volume 87 FL (80-99) Mean Corpuscular Hemoglobin 30.7 PG (27.0-31.0) Mean Corpuscular Hemoglobin Concent 35.5 G/DL (32.0-36.0) Red Cell Distribution Width 10.9 % (11.6-14.8) Platelet Count 223 K/UL (150-450) Mean Platelet Volume 5.7 FL (6.5-10.1) Neutrophils (%) (Auto) % (45.0-75.0) Lymphocytes (%) (Auto) % (20.0-45.0) Monocytes (%) (Auto) % (1.0-10.0) Eosinophils (%) (Auto) % (0.0-3.0) Basophils (%) (Auto) % (0.0-2.0) Differential Total Cells Counted 100 Neutrophils % (Manual) 87 % (45-75) Lymphocytes % (Manual) 7 % (20-45) Monocytes % (Manual) 6 % (1-10) Eosinophils % (Manual) 0 % (0-3) Basophils % (Manual) 0 % (0-2) Band Neutrophils 0 % (0-8) Platelet Estimate Adequate Platelet Morphology Normal Red Blood Cell Morphology Normal Sodium Level 138 MMOL/L (136-145) Potassium Level 2.3 MMOL/L (3.5-5.1) Chloride Level 98 MMOL/L (98-107) Carbon Dioxide Level 27 MMOL/L (21-32) Anion Gap 13 mmol/L (5-15) Blood Urea Nitrogen 11 mg/dL (7-18) Creatinine 1.1 MG/DL (0.55-1.30) Estimat Glomerular Filtration Rate > 60 mL/min (>60) Glucose Level 119 MG/DL (74-106) Calcium Level 9.3 MG/DL (8.5-10.1) Phosphorus Level 1.8 MG/DL (2.5-4.9) Magnesium Level 2.4 MG/DL (1.8-2.4) Total Bilirubin 1.1 MG/DL (0.2-1.0) Direct Bilirubin 0.5 MG/DL (0.0-0.3) Aspartate Amino Transf (AST/SGOT) 34 U/L (15-37) Alanine Aminotransferase (ALT/SGPT) 47 U/L (12-78) Alkaline Phosphatase 84 U/L (46-116) Total Protein 8.6 G/DL (6.4-8.2) Albumin 2.8 G/DL (3.4-5.0) Globulin 5.8 g/dL Albumin/Globulin Ratio 0.5 (1.0-2.7) HIV (1&2) Antibody Rapid Negative (NEGATIVE) Height (Feet): 6 Height (Inches): 1.00 Weight (Pounds): 200 Objective Vitals: reviewed General: NAD HEENT: nc, at Neck: supple ++ lymphadenopathy around Level II and III bilaterally Chest: clear breath sounds bilaterally Cardiovascular: RRR, no s3, s4 Abdomen: soft, nontender, nd Extremities: no cce, normal range of motion Neuro: alert and oriented Kyler Johnson MD July 15, 2019 10:49
[2019-07-15 12:00] VITALS: BP 138/89
--- NOTE | 2019-07-15 15:25 | Internal Med Progress Note ---
Subjective Date of Service: July 15, 2019 Physician Name Toyin Felipe Attending Physician Tonie Larios MD Current Medications Medications (Trade) Dose Ordered Sig/Mable Route PRN Reason Start Time Stop Time Status Last Admin Dose Admin Acetaminophen (Tylenol) 650 mg Q6H PRN ORAL For Headache 07/12/19 09:30 08/11/19 09:29 07/14/19 08:23 Acetaminophen/ Hydrocodone Bitart ([place] 10/325) 1 tab Q4H PRN ORAL For Moderate Pain 07/12/19 10:48 07/19/19 10:47 07/15/19 06:59 Docusate Sodium (Colace) 100 mg TID PRN ORAL Constipation 07/12/19 09:30 08/11/19 09:29 Enoxaparin Sodium (Lovenox) 40 mg DAILY SUBQ 07/12/19 09:30 10/10/19 09:29 Hydromorphone HCl (Dilaudid) 2 mg Q4H PRN IVP Severe Pain (Pain Scale 7-10) 07/13/19 13:00 07/20/19 12:59 07/15/19 11:22 Morphine Sulfate (Morphine Sulfate) 2 mg Q4H PRN IVP Moderate Pain (Pain Scale 4-6) 07/13/19 13:15 07/20/19 13:14 Ondansetron HCl (Zofran) 4 mg Q6H PRN IVP Nausea & Vomiting 07/14/19 18:00 08/13/19 17:59 07/14/19 18:05 Piperacillin Sod/ Tazobactam Sod 3.375 gm/Sodium Chloride 110 ml @ 27.5 mls/hr EVERY 8 HOURS IVPB 07/13/19 14:00 07/18/19 13:59 07/15/19 14:32 Vancomycin HCl (Vanco rx to dose) 1 ea DAILY PRN MISC Per rx protocol 07/13/19 13:00 08/12/19 12:59 Vancomycin/Sodium Chloride 275 ml @ 137.5 mls/ hr Q8H IVPB 07/15/19 10:00 07/20/19 09:59 07/15/19 10:00 Allergies: Coded Allergies: No Known Allergies (Verified , 09/27/18) Subjective Patient states he feels significantly better; pending ID w/u, but note will hold off on biopsy , and instead recommend a repeat CT scan in 2 weeks. Appreciate Consultants, continue present care. Objective Last Vital Signs Date Time Temp Pulse Resp B/P (MAP) Pulse Ox O2 Delivery O2 Flow Rate FiO2 07/15/19 12:00 97.9 92 18 138/89 (105) 95 07/15/19 09:00 Room Air 07/14/19 09:00 4.0 07/12/19 06:50 98 Laboratory Tests Test 07/15/19 01:10 07/15/19 04:00 Vancomycin Level Trough 10.5 ug/mL (5.0-12.0) White Blood Count 17.8 K/UL (4.8-10.8) H Red Blood Count 4.70 M/UL (4.70-6.10) Hemoglobin 14.5 G/DL (14.2-18.0) Hematocrit 40.7 % (42.0-52.0) L Mean Corpuscular Volume 87 FL (80-99) Mean Corpuscular Hemoglobin 30.7 PG (27.0-31.0) Mean Corpuscular Hemoglobin Concent 35.5 G/DL (32.0-36.0) Red Cell Distribution Width 10.9 % (11.6-14.8) L Platelet Count 223 K/UL (150-450) Mean Platelet Volume 5.7 FL (6.5-10.1) L Neutrophils (%) (Auto) % (45.0-75.0) Lymphocytes (%) (Auto) % (20.0-45.0) Monocytes (%) (Auto) % (1.0-10.0) Eosinophils (%) (Auto) % (0.0-3.0) Basophils (%) (Auto) % (0.0-2.0) Differential Total Cells Counted 100 Neutrophils % (Manual) 87 % (45-75) H Lymphocytes % (Manual) 7 % (20-45) L Monocytes % (Manual) 6 % (1-10) Eosinophils % (Manual) 0 % (0-3) Basophils % (Manual) 0 % (0-2) Band Neutrophils 0 % (0-8) Platelet Estimate Adequate Platelet Morphology Normal Red Blood Cell Morphology Normal Sodium Level 138 MMOL/L (136-145) Potassium Level 2.3 MMOL/L (3.5-5.1) *L Chloride Level 98 MMOL/L (98-107) Carbon Dioxide Level 27 MMOL/L (21-32) Anion Gap 13 mmol/L (5-15) Blood Urea Nitrogen 11 mg/dL (7-18) Creatinine 1.1 MG/DL (0.55-1.30) Estimat Glomerular Filtration Rate > 60 mL/min (>60) Glucose Level 119 MG/DL (74-106) H Calcium Level 9.3 MG/DL (8.5-10.1) Phosphorus Level 1.8 MG/DL (2.5-4.9) L Magnesium Level 2.4 MG/DL (1.8-2.4) Total Bilirubin 1.1 MG/DL (0.2-1.0) H Direct Bilirubin 0.5 MG/DL (0.0-0.3) H Aspartate Amino Transf (AST/SGOT) 34 U/L (15-37) Alanine Aminotransferase (ALT/SGPT) 47 U/L (12-78) Alkaline Phosphatase 84 U/L (46-116) Total Protein 8.6 G/DL (6.4-8.2) H Albumin 2.8 G/DL (3.4-5.0) L Globulin 5.8 g/dL Albumin/Globulin Ratio 0.5 (1.0-2.7) L Monoscreen Pending HIV (1&2) Antibody Rapid Negative (NEGATIVE) Intake and Output 07/14/19 07/15/19 19:00 07:00 Intake Total 1600 ml 1100 ml Balance 1600 ml 1100 ml Intake Oral 1100 ml Other 1600 ml # Voids 3 # Bowel Movements 1 Objective General Appearance: WD/WN, no apparent distress HEENT: Cervical BL adenopathy Cardiovascular: normal rate, regular rhythm Respiratory/Chest: lungs clear, normal breath sounds, no respiratory distress Abdomen: soft, other - mildly TTP Extremities: normal range of motion Neurologic: market development director II-XII grossly normal Skin: warm/dry Assessment/Plan Assessment/Plan Assessment #Lymphadenopathy; suspicious in nature w/ heterogenous appearance, DDx Infection vs CA, Hold on biopsy and repeat CT scan in two weeks #R/O COVID--> pending #Hypokalemia--> per patient this is a chronic issue, ? renal etiology #HTN--> BP currently elevated but denies hx Plan Consult to Heme/Onc, Consult to ID Expand AB to Vancomycin and Zosyn Replete K Supportive measures, Pain control w/ Dilaudid given severe pain Norvasc *1; monitor BP, add on as needed but for now pain control w/ morphine and norco DVT ppx Diet as tolerated 07/12: Expand AB coverage, await biopsy, Dilaudid for pain 07/13: Xray neck noted; await ID consult . FU regarding biopsy 07/14: Will hold off on biopsy; Continue ID w/u and AB Toyin Felipe D.O. July 15, 2019 15:25
[2019-07-15 16:00] VITALS: BP 147/89
--- NOTE | 2019-07-15 19:36 | Infectious Diseases Prog Note ---
Assessment/Plan Assessment/Plan Full consult dictated: A) 1) pharyngitis, cervical adenopathy, pain, fevers, ?bacterial, ? viral syndrome , ? covid-19 infection 2) pmh - htn 3) allergies - nkda P) 1) vancomycin and zosyn 2) check serology, cultures, covid-19 testing 3) clinically improved Subjective Constitutional: Reports: fever; Denies: other - feels better HEENT: Denies: congestion Respiratory: Denies: shortness of breath Cardiovascular: Denies: chest pain Gastrointestinal/Abdominal: Denies: nausea, vomiting Genitourinary: Denies: dysuria Neurologic: Denies: headache Allergies: Coded Allergies: No Known Allergies (Verified , 09/27/18) Objective Vital Signs Last 24 Hour Vital Signs Date Time Temp Pulse Resp B/P (MAP) Pulse Ox O2 Delivery O2 Flow Rate FiO2 07/15/19 16:00 97.2 96 18 147/89 (108) 95 07/15/19 12:00 97.9 92 18 138/89 (105) 95 07/15/19 09:00 Room Air 07/15/19 08:00 98.0 64 19 110/66 (81) 96 07/15/19 04:00 97.7 105 26 125/62 (83) 95 07/15/19 00:00 Room Air 07/15/19 00:00 97.9 107 26 113/73 (86) 94 07/14/19 20:00 97.7 111 26 126/83 (97) 96 Height (Feet): 6 Height (Inches): 1.00 Weight (Pounds): 200 General Appearance: no acute distress HEENT: normocephalic, atraumatic, anicteric, other - less adenopathy Respiratory/Chest: lungs clear, normal breath sounds, no respiratory distress Cardiovascular: normal rate, regular rhythm, no gallop/murmur Laboratory Tests Test 07/15/19 01:10 07/15/19 04:00 Vancomycin Level Trough 10.5 ug/mL (5.0-12.0) White Blood Count 17.8 K/UL (4.8-10.8) H Red Blood Count 4.70 M/UL (4.70-6.10) Hemoglobin 14.5 G/DL (14.2-18.0) Hematocrit 40.7 % (42.0-52.0) L Mean Corpuscular Volume 87 FL (80-99) Mean Corpuscular Hemoglobin 30.7 PG (27.0-31.0) Mean Corpuscular Hemoglobin Concent 35.5 G/DL (32.0-36.0) Red Cell Distribution Width 10.9 % (11.6-14.8) L Platelet Count 223 K/UL (150-450) Mean Platelet Volume 5.7 FL (6.5-10.1) L Neutrophils (%) (Auto) % (45.0-75.0) Lymphocytes (%) (Auto) % (20.0-45.0) Monocytes (%) (Auto) % (1.0-10.0) Eosinophils (%) (Auto) % (0.0-3.0) Basophils (%) (Auto) % (0.0-2.0) Differential Total Cells Counted 100 Neutrophils % (Manual) 87 % (45-75) H Lymphocytes % (Manual) 7 % (20-45) L Monocytes % (Manual) 6 % (1-10) Eosinophils % (Manual) 0 % (0-3) Basophils % (Manual) 0 % (0-2) Band Neutrophils 0 % (0-8) Platelet Estimate Adequate Platelet Morphology Normal Red Blood Cell Morphology Normal Sodium Level 138 MMOL/L (136-145) Potassium Level 2.3 MMOL/L (3.5-5.1) *L Chloride Level 98 MMOL/L (98-107) Carbon Dioxide Level 27 MMOL/L (21-32) Anion Gap 13 mmol/L (5-15) Blood Urea Nitrogen 11 mg/dL (7-18) Creatinine 1.1 MG/DL (0.55-1.30) Estimat Glomerular Filtration Rate > 60 mL/min (>60) Glucose Level 119 MG/DL (74-106) H Calcium Level 9.3 MG/DL (8.5-10.1) Phosphorus Level 1.8 MG/DL (2.5-4.9) L Magnesium Level 2.4 MG/DL (1.8-2.4) Total Bilirubin 1.1 MG/DL (0.2-1.0) H Direct Bilirubin 0.5 MG/DL (0.0-0.3) H Aspartate Amino Transf (AST/SGOT) 34 U/L (15-37) Alanine Aminotransferase (ALT/SGPT) 47 U/L (12-78) Alkaline Phosphatase 84 U/L (46-116) Total Protein 8.6 G/DL (6.4-8.2) H Albumin 2.8 G/DL (3.4-5.0) L Globulin 5.8 g/dL Albumin/Globulin Ratio 0.5 (1.0-2.7) L Monoscreen Pending HIV (1&2) Antibody Rapid Negative (NEGATIVE) Current Medications Medications (Trade) Dose Ordered Sig/Mable Route PRN Reason Start Time Stop Time Status Last Admin Dose Admin Acetaminophen (Tylenol) 650 mg Q6H PRN ORAL For Headache 07/12/19 09:30 08/11/19 09:29 07/14/19 08:23 Acetaminophen/ Hydrocodone Bitart ([place] 10/325) 1 tab Q4H PRN ORAL For Moderate Pain 07/12/19 10:48 07/19/19 10:47 07/15/19 06:59 Docusate Sodium (Colace) 100 mg TID PRN ORAL Constipation 07/12/19 09:30 08/11/19 09:29 Enoxaparin Sodium (Lovenox) 40 mg DAILY SUBQ 07/12/19 09:30 10/10/19 09:29 Hydromorphone HCl (Dilaudid) 2 mg Q4H PRN IVP Severe Pain (Pain Scale 7-10) 07/13/19 13:00 07/20/19 12:59 07/15/19 15:44 Morphine Sulfate (Morphine Sulfate) 2 mg Q4H PRN IVP Moderate Pain (Pain Scale 4-6) 07/13/19 13:15 07/20/19 13:14 Ondansetron HCl (Zofran) 4 mg Q6H PRN IVP Nausea & Vomiting 07/14/19 18:00 08/13/19 17:59 07/14/19 18:05 Piperacillin Sod/ Tazobactam Sod 3.375 gm/Sodium Chloride 110 ml @ 27.5 mls/hr EVERY 8 HOURS IVPB 07/13/19 14:00 07/18/19 13:59 07/15/19 14:32 Vancomycin HCl (Vanco rx to dose) 1 ea DAILY PRN MISC Per rx protocol 07/13/19 13:00 08/12/19 12:59 Vancomycin/Sodium Chloride 275 ml @ 137.5 mls/ hr Q8H IVPB 07/15/19 10:00 07/20/19 09:59 07/15/19 17:23 Vijay Cohen MD July 15, 2019 19:36
[2019-07-15 20:00] VITALS: BP 134/88
[2019-07-16] VITALS: BP 128/79
--- NOTE | 2019-07-16 01:00 | Consultation ---
DATE OF CONSULTATION: 07/15/2019 INFECTIOUS DISEASE CONSULTATION CONSULTING PHYSICIAN: Vijay Cohen MD. ATTENDING PHYSICIAN: Tonie Larios MD. REFERRING PHYSICIAN: Santos Felipe MD. REASON FOR CONSULTATION: Severe cervical adenopathy, pharyngitis, fevers, possible COVID-19 virus infection, viral syndrome, leukocytosis, possible sepsis. CHIEF COMPLAINT: Patient's chief complaint coming in to the hospital is tonsillitis, sepsis, pharyngitis. HISTORY OF PRESENT ILLNESS: This is a very pleasant 34-year-old male who comes in to [facility] with fevers and severe tonsillitis and pharyngitis. Patient was initially started on Rocephin and was also given methylprednisolone. Patient did not improve and was switched to Vanco and Zosyn for upgraded antibiotic coverage. Infectious Disease consultation is requested. A culture was not taken of the pharynx because I believe patient also is on COVID-19 virus isolation. COVID-19 testing is pending. Patient has improved on Vanco and Zosyn clinically. Case communicated with Dr. Felipe. MAR was noted. Orders were noted. Notes and records were reviewed. REVIEW OF SYSTEMS: CONSTITUTIONAL: He came in with fevers and I had believe fever and chills. Currently he has no dysphagia. His adenopathy is improved and his sore throat is improved. CARDIAC: No chest pain. GASTROINTESTINAL: No nausea, vomiting, or diarrhea. GENITOURINARY: No [place]. No dysuria or frequency. PULMONARY: No shortness of breath. No cough or secretions. PAST MEDICAL HISTORY: The patient has otherwise negative past medical history, but I believe he is being treated for hypertension, so past medical history includes hypertension, otherwise negative. ALLERGIES: No known drug allergies. SOCIAL HISTORY: Negative for smoking, alcohol, or drug abuse. FAMILY HISTORY: Noncontributory. MEDICATIONS: Upon reviewing the MAR, he is on following medications. He is on Vanco, Zosyn. He is on K-Dur, IV fluids, potassium. He is on morphine, hydromorphone, hydrocodone. He was on Rocephin that was discontinued. He is on Vanco and Zosyn. He is on Lovenox, Colace, K-Dur, morphine. He has been getting those medications. Outside medications noted and reconciliated. PHYSICAL EXAMINATION: VITAL SIGNS: Temperature 97.2, pulse rate 96, respiratory rate 18, blood pressure 147/89, saturation 95% on room air, T-max 101.7. On admission, his temperature was as high as 103. GENERAL: Alert, responsive, oriented x3. HEAD AND NECK: Oral exam, no thrush. Normocephalic. No icterus. Adenopathy is improved. He does have neck adenopathy or cervical adenopathy or lymphadenopathy, which is improved. HEART: Regular. No gallop or murmur. ABDOMEN: Soft. Positive bowel sounds. Nontender. LUNGS: Clear bilaterally. No rhonchi or rales. SKIN: No rashes. MUSCULOSKELETAL: No effusion. Legs are without cellulitis. PERIPHERAL VASCULAR: No gangrene. NEUROLOGIC: Intact. LABORATORY AND DIAGNOSTIC DATA: Laboratory data is as follows. Patient's HIV test is negative. [place] screen is pending. White count 17.8, hemoglobin 14.5. Potassium 2.3. Creatinine is 1.1. COVID-19 testing is pending. Blood cultures are negative. IMAGING STUDIES: Chest x-ray was not done. CT scan of the head and neck showed lymph nodes of the neck with lymphoproliferative disorder or malignancy is in the differential diagnosis. Possible infection also. ASSESSMENT AND PLAN: 1. Patient has pharyngitis or tonsillitis, cervical adenopathy, possible sepsis, fevers, leukocytosis, possible bacterial infection versus viral syndrome. Rule out COVID-19 virus infection. Patient has pain and fevers and elevated white count and possible sepsis. At this time, I agree with Vanco and Zosyn. I believe this is day #2 of these antibiotics. He failed Rocephin it looks like. Continue Vanco and Zosyn for the pharyngitis and tonsillitis with possible sepsis. Await COVID-19 virus testing. Because of the COVID-19 status, avoid exposing personnel and I would not check throat culture this time. He is being treated for bacterial infection in anyway. Also follow up on mono screen. His HIV test was negative. The patient does have elevated white count. However, he has been given steroids initially on admission, methylprednisolone. Continue Vanco and Zosyn for now. 2. Possible hypertension. Blood pressure treatment per primary care team. 3. No known drug allergies. 4. Social history is negative. 5. Family history is noncontributory. 6. MAR was noted. 7. Case discussed with RN. 8. Case communicated with Dr. Felipe. Thank you, I will follow. Vijay Cohen M.D. DR: JESUS JOB#: [id number] CC:
[2019-07-16] MEDS: Vancomycin 1.5gm/NS Premix q24h IVPB SCH ×2 (01:43→10:28)
[2019-07-16 04:00] VITALS: BP 126/74
[2019-07-16] MEDS: Piperacillin/Tazobactam 3.375 GM in NS 110 ML IVPB SCH ×2 (05:47→13:28)
[2019-07-16 08:00] VITALS: BP 116/77
[2019-07-16] MEDS: Enoxaparin 40mg Inj SUBQ SCH (09:00)
[2019-07-16 09:11] LABS: BASOPHILS % (AUTO) 1.4 % (0.0-2.0); EOSINOPHILS % (AUTO) 3.4 % (0.0-3.0); HEMATOCRIT 39.3 % (42.0-52.0); HEMOGLOBIN 13.7 G/DL (14.2-18.0); LYMPHOCYTES % (AUTO) 21.8 % (20.0-45.0); MEAN CORPUSCULAR VOLUME 86 FL (80-99); MONOCYTES % (AUTO) 11.2 % (1.0-10.0); NEUTROPHILS % (AUTO) 62.3 % (45.0-75.0); PLATELET COUNT 358 K/UL (150-450); RED BLOOD COUNT 4.57 M/UL (4.70-6.10); RED CELL DISTRIBUTION WIDTH 11.1 % (11.6-14.8); WHITE BLOOD COUNT 12.1 K/UL (4.8-10.8)
[2019-07-16 09:46] LABS: ALANINE AMINOTRANSFERASE 46 U/L (12-78); ALBUMIN 2.4 G/DL (3.4-5.0); ALBUMIN/GLOBULIN RATIO 0.5 (1.0-2.7); ALKALINE PHOSPHATASE 64 U/L (46-116); ANION GAP 4 mmol/L (5-15); ASPARTATE AMINO TRANSFERASE 28 U/L (15-37); BILIRUBIN,TOTAL 0.7 MG/DL (0.2-1.0); BLOOD UREA NITROGEN 11 mg/dL (7-18); CALCIUM 8.7 MG/DL (8.5-10.1); CARBON DIOXIDE 34 MMOL/L (21-32); CHLORIDE 108 MMOL/L (98-107); CREATININE 1.1 MG/DL (0.55-1.30); PHOSPHORUS 4.1 MG/DL (2.5-4.9); POTASSIUM 3.7 MMOL/L (3.5-5.1); SODIUM 146 MMOL/L (136-145)
[2019-07-16 12:00] VITALS: BP 130/79
--- NOTE | 2019-07-16 13:51 | CDS Physician Query ---
Clarification is required for compliance, coding accuracy, and to reflect severity of illness for this patient Dear Toyin Tellez D.O. Date: 07/16/2019 Substation Operator Chief/CDS Name: Micheal Russell Clinical Documentation States: "34 yo M w/ no PMH, otherwise healthy in life, who presents w/ a CC of sore throat, fever, and pain for the last three days. " [ H&P Toyin Felipe D.O. July 12, 2019 09:48] Assessment: Lymphadenopathy; suspicious in nature w/ heterogenous appearance, R/ O COVID, Hypokalemia, HTN Clinical findings show: BMI 31.9 kg/m2 Albumin ( 07/11): 3.3 G/GL [3.4-5.0] Calcium (07/11): 9.2 MG/DL[8.5-10.1] Please select the most appropriate option: [] Protein/Calorie Malnutrition [] Mild [] Moderate [] Severe [] Other [] Unable to determine [] Not Applicable Present on Admission: [] Yes [] No [] Clinically Undetermined Physician signature Date Please also document in your Progress Notes and/or Discharge Summary and indicate if the condition was present on admission. MTDD
[2019-07-16 16:00] VITALS: BP 127/72
[2019-07-16] MEDS ORDERED: AMOX TR-K CLV1 EAC2 ORAL (16:28)
[2019-07-16] MEDS ORDERED: BACTRIM-DS1 EA ORAL (16:28)
--- NOTE | 2019-07-16 16:31 | Discharge Instructions ---
Discharge Instructions Discharge Instructions Special Instructions Complete 7 day course of AB; no need for repeat CT scan as you have responded to AB. F/U with PCP. For Congestive Heart Failure Reminder Report to your physician any weight gain of 5 pounds or more in one week. Toyin Felipe D.O. July 16, 2019 16:31
[2019-07-16] MEDS ORDERED: Augmentin 875mg Tab ORAL SCH (17:00)
--- NOTE | 2019-07-16 19:40 | Discharge Summary ---
Discharge Summary Hospital Course Date of Admission July 12, 2019 at 05:21 Date of Discharge Admitting Diagnosis sepsis,tonsilitis HPI This is a 34 yo M w/ no PMH, otherwise healthy in life, who presents w/ a CC of sore throat, fever, and pain for the last three days. Patient was on an outpatient course of Azithromycin and Motrin, but feels symptoms are worsening, and also endorses swelling to the left side of his neck. CT neck reveals lymphadenopathy irregular in appearance, and patient also is not septic appearing w/ no signs of elevated WBC so do feel Heme/Onc needs to be consulted. Patient denies recent weight loss, or health issues. He does state the fevers feel intense; he actually lives in [place] and is here visiting. Patient denies sick contacts; COVID was sent from the ER. Hospital Course Assessment #Lymphadenopathy; suspicious in nature w/ heterogenous appearance, no active signs of sepsis #R/O COVID #Hypokalemia--> per patient this is a chronic issue, ? renal etiology #HTN--> BP currently elevated but denies hx Plan Consult to Heme/Onc Rocephin IV, Nava Cx Replete K Supportive measures, Pain control Norvasc *1; monitor BP, add on as needed but for now pain control w/ morphine and norco DVT ppx Diet as tolerated 07/15: patient was cleared for d/c w/ Augmentin and Bactrim. No need for repeat CT as he has responded to AB. Discharge Dx: #Cervical Lymphadenopathy secondary to bacterial pharyngitis #Hypokalemia #HTN Discharge Discharge Vital Signs Last Vital Signs Date Time Temp Pulse Resp B/P (MAP) Pulse Ox O2 Delivery O2 Flow Rate FiO2 07/16/19 16:00 98.2 86 18 127/72 (90) 99 07/16/19 09:00 Room Air 07/14/19 09:00 4.0 07/12/19 06:50 98 Discharge Disposition Patient was discharged to Toyin Felipe D.O. July 16, 2019 19:40
[2019-07-16] MEDS ORDERED: Bactrim-DS 1 tab ORAL SCH (21:00)
== END 2019-07-16 19:20 | disposition home or self-care (01) | DRG 113 ==
LOC: EMR 01:33 → 4E 05:21 → EDBEDREQ 05:48
DX: J02.8 Acute pharyngitis due to other specified organisms (principal); E87.6 Hypokalemia; I10 Essential (primary) hypertension; D64.9 Anemia, unspecified
CPT/HCPCS: 36415; 36600; 70360; 70498; 80053; 80202; 82248; 82550; 82728; 82803; 83605; 83615; 83735; 84100; 85007; 85025; 85379; 86140; 86308; 86703; 87040; 87635; 96361; 96365; 96375; 99285; J2405; J7030; J8499

== ENCOUNTER 2020-05-02 12:49 | Emergency (ER) | payer MEDICAID, OTHER ==
[~2020-05-02] VITALS: Ht 188 cm; Wt 117.9 kg
[~2020-05-02 12:49] MED LIST changes: +AMOX TR-K CLV1 EAC2 ORAL; +BACTRIM-DS1 EA ORAL; +POTASSIUM CHLO10 MEQ ORAL
[2020-05-02 13:26] VITALS: BP 129/67
[2020-05-02] MEDS ORDERED: Azithromycin 250mg tab ORAL ONE (13:30)
[2020-05-02] MEDS ORDERED: Acetaminophen 500mg (ES) tab ORAL ONE (13:30)
--- NOTE | 2020-05-02 13:30 | Emergency Room Report ---
History of Present Illness General Chief Complaint: Earache Source: Patient Present Illness HPI The patient presents with left ear pain. This started on April 29. He also has some decreased hearing and states his hearing is muffled. There is no drainage. Complaining about pain. He rates the pain 7 or 8/10 at this time and aching and some pressure. It does not radiate. He denies any sore throat. He has been isolating himself and does not believe he has been exposed to Covid. In the past when this is happened he said eardrops and this is what he is requesting at this time. No fevers, chills, chest pain, cough, nausea, vomiting, diarrhea, vertigo or hea dache. There is no rash. Patient has a history of hypokalemia. He states he knows his potassium is normal at this time. Allergies: Coded Allergies: No Known Allergies (Verified , 09/27/18) COVID-19 Screening Contact w/high risk pt: No Recent Travel to affected area: No Experienced COVID-19 symptoms?: No COVID-19 symptoms experienced: Fever (T>100.4F or >38C) COVID-19 Testing performed [employer]: No COVID-19 Screening: Negative COVID-19 Patient History Past Medical History: see triage record, other Social History: Reports: smoking Social History Narrative Patient drove himself here. Reviewed Nursing Documentation: PMH: Agreed; PSxH: Agreed Nursing Documentation-PMH Hx Cardiac Problems: No Hx Cancer: No Hx Gastrointestinal Problems: No Hx Neurological Problems: No Review of Systems Constitutional: Reports: see HPI ENT: Reports: see HPI Respiratory: Reports: see HPI Gastrointestinal: Reports: see HPI Skin: Reports: see HPI Neurological: Reports: see HPI Physical Exam Vital Signs Date Time Temp Pulse Resp B/P (MAP) Pulse Ox O2 Delivery O2 Flow Rate FiO2 05/02/20 13:19 98.4 80 18 129/67 (87) 100 Room Air Sp02 EP Interpretation: reviewed, normal General Appearance: well appearing, no apparent distress, GCS 15 Head: normocephalic Eyes: bilateral eye normal inspection, bilateral eye PERRL, bilateral eye EOMI ENT: EOM grossly intact - Reported somewhat muffled on the left, normal pharynx, moist mucus membranes, other - Bullae on the tympanic membrane on the left-hand side with minimal erythema. The canal is normal and there is no pinna tenderness. Mastoids are not tender. 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 Differential includes otitis media, otitis externa amongst others. Based on the physical exam the patient has bullous myringitis. Antibiotics are indicated. In addition analgesia and antihistamines are indicated. Discussed findings with patient. Discussed the need for outpatient observation and treatment. Patient stable. Last Vital Signs Date Time Temp Pulse Resp B/P (MAP) Pulse Ox O2 Delivery O2 Flow Rate FiO2 05/02/20 13:26 98.4 18 129/67 100 Room Air 05/02/20 13:19 80 Status: improved Disposition: HOME, SELF-CARE Condition: Improved Scripts Chlorpheniramine Maleate (CHLOR-TRIMETON) 4 Mg Tablet 4 MG PO Q6HR PRN for congestion and decreased heari, #12 TAB Prov: Karlo Stauffer MD 05/02/20 Ibuprofen* (MOTRIN*) 600 Mg Tablet 600 MG ORAL Q6H PRN for FOR PAIN, #20 TAB 0 Refills Prov: Karlo Stauffer MD 05/02/20 Hydrocodone/Acetaminophen 5-325* (HYDROCODONE/ACETAMINOPHEN 5-325*) 1 Each Tablet 1 TAB ORAL Q6H PRN for For Pain, #8 TAB 0 Refills Prov: Karlo Stauffer MD 05/02/20 Ciprofloxacin Hcl/Dexameth (CIPRODEX OTIC SUSPENSION) 7.5 Ml Drops.susp 4 DROP LEFT EAR TWICE A DAY, #5 ML Prov: Karlo Stauffer MD 05/02/20 Azithromycin* (ZITHROMAX*) 250 Mg Tablet 250 MG ORAL DAILY, #4 TAB Prov: Karlo Stauffer MD 05/02/20 Karlo Stauffer MD May 02, 2020 13:30
[2020-05-02] MEDS ORDERED: ZITHROMAX250 MG ORAL (14:14)
[2020-05-02] MEDS ORDERED: IBUPROFEN600 M1 ORAL (14:14)
[2020-05-02] MEDS ORDERED: CIPRODEX OTIC7.5 M1 LEFT EAR (14:14)
[2020-05-02] MEDS ORDERED: HYDROCODON-ACE1 EA15 ORAL (14:14)
[2020-05-02] MEDS ORDERED: CHLOR-TRIMETON4 MG PO (14:19)
== END 2020-05-02 15:45 | disposition home or self-care (01) ==
LOC: EMR 13:51
DX: H73.012 Bullous myringitis, left ear (principal)
CPT/HCPCS: Q0144; Z7502; 99282